=== PATIENT | male | born 1960 | race Caucasian/White ===

== ENCOUNTER 2017-03-15 01:22 | Observation (INO) ==
[2017-03-15] MEDS ORDERED: *HR* Morphine 2 MG/ML SYRINGE IVP PRN (03:07)
[2017-03-15] MEDS ORDERED: *HR* OxyCODONE Immed Rel 5 MG TABLET PO PRN (03:07)
[2017-03-15] MEDS ORDERED: *HR* Promethazine 25 MG/ML VIAL IVP PRN (03:07)
[2017-03-15] MEDS ORDERED: Naloxone 0.4 MG/ML INJ IVP PRN (03:07)
[2017-03-15] MEDS ORDERED: Acetaminophen 325 MG TABLET PO PRN (03:07)
[2017-03-15] MEDS ORDERED: Nitroglycerin 0.4 MG TAB.SUBL SL PRN (03:12)
[2017-03-15] MEDS ORDERED: Dextrose Gel 15 GM PO PRN ×2 (03:12)
[2017-03-15] MEDS ORDERED: Benzonatate 100 MG CAPSULE PO PRN (03:12)
[2017-03-15] MEDS ORDERED: D5% in Water 1,000 ML IVC PRN (03:12)
[2017-03-15] MEDS ORDERED: Albuterol 2.5 MG/3 ML NEBULIZER IH PRN (03:12)
[2017-03-15] MEDS ORDERED: *HR* Dextrose 50 % in Water (Syg) 50 ML SYRINGE IVP PRN (03:12)
[2017-03-15] MEDS ORDERED: 0.9 % Sodium Chloride 1,000 ML IVC SCH (03:15)
[2017-03-15] MEDS ORDERED: methylPREDNISolone 125 MG/2 ML VIAL IVP STA (04:02)
--- NOTE | 2017-03-15 04:09 | Internal Med History&Physical ---
Date of Encounter: 03/15/17 Time of Encounter: 03:45 Assessment and Plan (1) Chest pain, rule out acute myocardial infarction Current visit: Yes Status: Acute . (2) Chest pain with moderate risk of acute coronary syndrome Current visit: Yes Status: Acute . (3) CAD (coronary artery disease), [place] coronary artery Current visit: Yes Status: Chronic . Qualifiers: [place] vs. transplanted heart: [place] heart Associated angina: with stable angina Qualified Code(s): I25.118 - Atherosclerotic heart disease of [place] coronary artery with other forms of angina pectoris (4) HTN (hypertension) Current visit: Yes Status: Chronic . Qualifiers: Hypertension type: essential hypertension Qualified Code(s): I10 - Essential (primary) hypertension (5) HLD (hyperlipidemia) Current visit: Yes Status: Chronic . Qualifiers: Hyperlipidemia type: mixed hyperlipidemia Qualified Code(s): E78.2 - Mixed hyperlipidemia (6) Morbid obesity with BMI of 50.0-59.9, adult Current visit: Yes Status: Chronic . (7) Morbid (severe) obesity with alveolar hypoventilation Current visit: Yes Status: Chronic . (8) JONAH and COPD overlap syndrome Current visit: Yes Status: Chronic . (9) Type 2 diabetes mellitus Current visit: Yes Status: Chronic . Qualifiers: Diabetes mellitus complication status: with unspecified complications Diabetes mellitus senior living insulin use: without senior living use Qualified Code( s): E11.8 - Type 2 diabetes mellitus with unspecified complications (10) Heavy cigarette smoker (20-39 per day) Current visit: Yes Status: Chronic . (11) Acute exacerbation of COPD with asthma Current visit: Yes Status: Acute . (12) Nicotine dependence with nicotine-induced disorder Current visit: Yes Status: Chronic . Qualifiers: Nicotine product type: cigarettes Qualified Code(s): F17.219 - Nicotine dependence, cigarettes, with unspecified nicotine-induced disorders Internal Medicine - H&P: HPI Chief complaint: Acute chest and back pain; difficulty breathing. Admitted From: Hospital to Hospital Transfer ([facility], ED, [facility] transfer to [facility] inpatient) Plans for Post Hospital Care: Home History of present illness: Mr. Graham is a 56 year old male with history significant of CAD/PTCA stents x7/ AMIs x5, diastolicCHF/LVEF, type II DM, HTN, HLD, TIAs, depression/anxiety, RLS , GERD, chr MSK/LBpain, h/o necrotizing fascitis/strep pyogenes, morbid obesity , nicotine dependency. The patient received as a transfer from [facility] emergency department as a direct admit to [facility] inpatient unit to address acute coronary syndrome/unstable angina concerns the patient previously managed by [facility].Acute onset of retrosternal chest pain associated with mid to lower back pain and difficulty breathing with increasing work of breathing occurring at approximately 10 PM the evening of admission. Associated with generalized shaking and lightheadedness. Acknowledge stay history of CAD with previous stent placements. His chest pain as a 5-8/10 severity. Pressure-like heaviness radiating through to his back and left elbow. Denied any modifying factors. The patient felt that chest pain was similar to the last occasion he presented with chest pain to [facility] and required stenting. Blood sugar initially measured by patient to be over 400. He admitted to drinking regular Coca-Cola all evening. Not adhering to standard cardiac/ diabetic diet. Continues to smoke. Currently he had a half a pack to a pack per day for the last 3 months. Patient reports began smoking in kindergarten and has smoked as much as 5 packs per day. On average roughly 1-2 packs per day most of his adult life. Has known COPD and JONAH. Reports compliance with his CPAP nocturnally. Has not required use of his CPAP or oxygen during the day with his current symptoms. He reports compliance with his cardiovascular medications. Denies any indiscretions. Vital signs at time of initial transport: Temperature 97.7 blood pressure 185/94 respirations 24 pulse 105 O2 saturation by pulse oximetry 96% 3l/m NC. EKG demonstrated sinus rhythm with first-degree atrioventricular block. Poor R-wave progression. Low QRS voltage in precordial leads and limb leads no acute ischemic changes. Screening laboratory studies as reported by [facility] prior to transfer were benign including negative troponin/injury profiles. Examination upon arrival to [facility] is most noteworthy for labored respiration and evidence of acute exacerbation of chronic obstructive pulmonary disease with diffuse bronchospasm. Low back pain is more associated with chronic features of musculoskeletal discomfort. Chest pain may be a feature of his labored respirations and COPD untreated for some time. However he possesses increased risk due to hypoxia and respiratory demand for demand ischemia and his consequences. The patient presents increased risk for acute clinical decline and morbidity. Given his significant history and active active risk factors he is at increased risk for major acute coronary event. Workup and treatment will proceed comprehensively. The patient was visited and interviewed and examined. Cumulative laboratory and radiographic data base was reviewed and considered. Consultative opinions will be sought as clinical circumstances justify. Initial consultative opinion has been requested of cardiology. Acute coronary syndrome treatment protocols/surveillance guidelines initiated. Acute exacerbation of COPD treatment protocols/surveillance guidelines initiated. Plan of care has been discussed in detail with patient. Questions addressed. Hospital course will be dependent upon clinical findings, treatment response and potential consultative interventions. Given the patient's presenting concerns, past medical history, clinical findings and symptoms, he is admitted at this time to undergo further evaluation and disposition. Orders written as per the computerized physician mitochondrial disorders counselor system. Condition is serious. Prognosis is guarded. CODE STATUS is full. Past Med Surg Social Fam HX - Past Medical History Source: old records reviewed Medical history: arthritis, asthma, CHF, COPD, coronary artery disease, diabetes , GERD, hyperlipidemia, hypertension, myocardial infarction, renal disease, TIA , other Psychiatric history: anxiety, depression, other - Past Surgical History Surgical History: angioplasty/stent, cholecystectomy, other - Social History Smoking Status: Heavy tobacco smoker (Smoked for 50 years. 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 On average one to 2 packs per day outside of that. Reports that he is decreased in the last 2-3 months to half a pack a day. Reports that in the last 2-3 months he is decreased to half a pack per day.) Smokeless Tobacco Status: No Alcohol use: none, unknown Drug use: none, unknown Occupational status: unemployed Current living situation: Home, With Family Activity Level: Independent ambulation, Mostly sedentary Recent Out of Country Travel Within the Last 8 Weeks: No Exposure or Possible Exposure to Illness During Travel: No Internal Medicine - H&P: Meds Aspirin [Ecotrin] 325 mg PO DAILY 03/15/17 [History] Citalopram [CeleXA] 20 mg PO DAILY 03/15/17 [History] Clopidogrel [Plavix] 75 mg PO DAILY 03/15/17 [History] Esomeprazole Magnesium [Nexium 24Hr] 20 mg PO DAILY 03/15/17 [History] Fenofibrate Nanocrystallized [Tricor] 145 mg PO DAILY 03/15/17 [History] Furosemide [Lasix] 80 mg PO DAILY 03/15/17 [History] HYDROcodone/Acet 10/325 mg [[place] 10-325 mg] 1 tab PO Q6HR 03/15/17 [History] Insulin ASPART [NovoLOG] 60 unit SQ TIDWM 03/15/17 [History] Insulin Glargine [Lantus] 100 unit SQ BID 03/15/17 [History] Lisinopril [Zestril] 30 mg PO DAILY 03/15/17 [History] Metformin HCl [Glucophage] 1,000 mg PO BID 03/15/17 [History] Multivit-Min/FA/Lycopen/Lutein [Centrum Silver Tablet] 1 each PO DAILY 03/15/17 [History] Nitroglycerin [Nitrostat] 0.4 mg SL 1-3XD PRN 03/15/17 [History] [place]-3 Fatty Acids [Fish Oil] 1,000 mg PO DAILY 03/15/17 [History] Pramipexole [Mirapex] 1 mg PO DAILY 03/15/17 [History] Pregabalin [Lyrica] 03/15/17 [History] Allergies No Known Allergies Allergy (Verified 06/30/16 09:52) All Systems PM: A 10-system review of systems was performed and is negative for pertinent findings except as documented above in the HPI. - Constitutional Constitutional: as per HPI, chills, fatigue, malaise, other, no fever(s), no night sweats - EENT Eyes: as per HPI, no change in vision, no discharge, no pain, no photophobia Ears: as per HPI, no ear discharge, no ear pain, no tinnitus Nose, mouth and throat: as per HPI, no dysphagia, no nasal discharge, no neck pain, no sore throat - Cardiovascular Cardiovascular ROS IM: as per HPI, chest pain, dyspnea, dyspnea on exertion, lightheadedness, palpitations, other, no diaphoresis, no edema, no syncope - Respiratory Respiratory: as per HPI, cough, dyspnea, dyspnea on exertion, wheezing, chest congestion, pain with cough, other, no stridor, no excessive phlegm production - Gastrointestinal Gastrointestinal: as per HPI, no abdominal pain, no diarrhea, no hematemesis, no hematochezia, no melena, no nausea, no vomiting - Genitourinary Genitourinary ROS male: as per HPI - Musculoskeletal Musculoskeletal ROS IM: as per HPI, no numbness, no tingling - Integumentary Integumentary IM: as per HPI, no rash, no unusual bruising - Neurological Neurological ROS: as per HPI, no confusion, no convulsions, no focal weakness, no numbness, no tingling, no tremor(s) - Psychiatric Psychiatric: as per HPI - Endocrine Endocrine IM: as per HPI - Hematologic/Lymphatic Hematologic/Lymphatic: as per HPI, no easy bruising - Allergic/Immunologic Allergic/Immunologic: as per HPI - Constitutional General appearance: Present: cooperative, mild distress, A&O X 3, morbidly obese , answers questions appropriately - Head Head exam: Present: atraumatic, normal inspection, normocephalic - Eye Eye exam: Present: EOMI, PERRL, conjuntiva pink, sclera anicteric Pupils: Present: normal accommodation, PERRL - ENT ENT exam: Present: mucous membranes moist, normal external ear exam, normal oropharynx - Neck Neck exam general surgery: Present: full ROM, supple, trachea midline. Absent: lymphadenopathy, nuchal rigidity - Respiratory Respiratory exam: Present: decreased breath sounds, prolonged expiratory phase, respiratory distress, rhonchi, wheezes, tachypnea. Absent: accessory muscle use , chest wall tenderness, CTAB, rales, stridor - Cardiovascular Cardiovascular exam: Present: distant heart sounds, RRR, +S1, +S2, tachycardia. Absent: diastolic murmur, gallop, rubs, systolic murmur - GI/Abdominal GI/Abdominal exam: Present: diminished bowel sounds, distended, soft, no peritoneal signs. Absent: tenderness - Extremities Exam Extremities exam: Present: full ROM, warm, radial pulses palpable and symetrical. Absent: calf tenderness, cyanotic, joint swelling, pedal edema, tenderness - Neurological Exam Neurological exam: Present: alert, CN II-XII intact, oriented X3, no focal deficits. Absent: pronater drift, facial droop, speech deficit - Psychiatric Psychiatric exam: Present: normal affect, normal mood - Skin Skin exam: Present: dry, intact, warm. Absent: petechiae, rash, urticaria, vesicles
[2017-03-15] MEDS: Ipratropium/Albuterol Neb 3 ML IH SCH ×3 (04:25→16:33)
[2017-03-15 04:42] LABS: ABG Base Excess 4.7 mEq/L (-2.0 to 3.0); ABG Oxygen Saturation 92 % (95-98); ABG PCO2 50 mmHg (35-45); ABG PO2 64 mmHg (85-104); ABG TCO2 32.5 mEq/L (20-26)
[2017-03-15 04:43] LABS: Blood Gas FiO2 21 %
[2017-03-15 05:20] LABS: Basophils # 0.1 K/mcL (0.0-0.2); Basophils % 0.5 %; Eosinophils # 0.3 K/mcL (0.0-0.6); Eosinophils % 2.2 %; Hematocrit 41.1 % (37.5-50.1); Hemoglobin 13.3 g/dL (12.9-16.9); Immature Granulocytes % 0.9 % (0-4); Lymphocytes # 4.5 K/mcL (0.6-4.6); Lymphocytes % 29.5 %; Mean Corpuscular HGB Conc 32.4 g/dL (31.6-35.5); Mean Corpuscular Volume 92.8 fL (83.0-100.0); Mean Platelet Volume 12.5 fL (9.4-12.4); Monocytes # 1.3 K/mcL (0.0-1.3); Monocytes % 8.4 %; Neutrophils # 8.9 K/mcL (1.6-8.9); Platelet Count 185 K/mcL (140-400); Red Blood Count 4.43 M/mcL (4.19-5.50); Red Cell Distribution Width 15.5 % (11.5-14.5); Segmented Neutrophils % 58.5 %
[2017-03-15 05:23] LABS: Prothrombin Time 11.3 Seconds (9.4-12.1)
[2017-03-15 05:26] LABS: Activated Partial Thrombo Time 31.4 Seconds (26.0-36.0)
[2017-03-15 05:31] LABS: Hemoglobin A1C 9.4 %
[2017-03-15 05:35] LABS: BUN/Creatinine Ratio 19 (6-26); Blood Urea Nitrogen 21 mg/dL (8-26); Carbon Dioxide 21 mEq/L (19-29); Chloride 104 mEq/L (98-109); Sodium 137 mEq/L (136-145); eGFR For African Americans > 60 (> 60)
[2017-03-15 05:36] LABS: Alanine Aminotransferase 22 Units/L (0-55); Albumin 3.2 g/dL (3.5-5.0); Albumin/Globulin Ratio 0.8 (1.1-2.2); Alkaline Phosphatase 104 Units/L (38-126); Aspartate Amino Transferase 35 Units/L (5-34); Bilirubin,Total 0.4 mg/dL (0.2-1.2); Calcium 9.9 mg/dL (8.6-10.8); Chol/HDL Ratio 5.8 (0-4.9); Cholesterol 162 mg/dL (< 200); Globulin 4.2 g/dL (2.4-3.5); Glucose 171 mg/dL (70-99); HDL Cholesterol 28 mg/dL (40-59); LDL Cholesterol,Calculated 85 mg/dL (0-99); Osmolality,Calculated 291 (280-300); Phosphorous 3.7 mg/dL (2.3-4.7); Total Protein 7.4 g/dL (6.0-8.3); Triglycerides 246 mg/dL (< 150); eGFR For Non-African Americans > 60 (> 60)
[2017-03-15 05:39] LABS: Potassium 4.3 mEq/L (3.5-4.5)
[2017-03-15] MEDS ORDERED: *HR* Enoxaparin 30 MG/0.3 ML SYRINGE SQ SCH (06:00)
[2017-03-15 06:08] LABS: Thyroid Stimulating Hormone 0.301 mcIU/mL (0.350-4.840)
[2017-03-15 07:41] LABS: Bilirubin,Urine Small (Negative); Blood,Urine Negative (Negative); Clarity,Urine Clear (Clear); Color,Urine Dark Yellow (Yellow); Glucose,Urine (UA) 250 mg/dL (Normal); Ketones,Urine Negative (Negative); Leukocyte Esterase,Urine Negative (Negative); Nitrite,Urine Negative (Negative); PH,Urine 5.5 pH Units (5.0-8.0); Protein,Urine 30 mg/dL (Neg-Trace); Specific Gravity,Urine > 1.030 (1.010-1.025); Urobilinogen,Urine Normal (Normal)
[2017-03-15 07:45] LABS: Bacteria,Urine None Seen per hpf (None-Few); Hyaline Casts,Urine None Seen per lpf (None-Few); Squamous Epithelial Cell,Urine Many per lpf (None-Few); WBC,Urine 0-3 per hpf (0-3)
[2017-03-15] MEDS: Insulin LISPRO 300 UNITS/3 ML VIAL SQ SCH ×4 (07:49→12:03)
--- NOTE | 2017-03-15 08:47 | Cardiology Consult Note ---
Date of Encounter: 03/15/17 Time of Encounter: 08:36 Assessment and Plan (1) Chest pain with high risk for cardiac etiology Current Visit: Yes Status: Acute Patient with high risks for cardiac chest pain including hypertension, hyperlipidemia, type II diabetes, tobacco use, and family history of cardiac disease unspecified and history of CAD s/p 7 stents and 5 acute AR, who was transferred from [facility] for [facility] evaluation of sudden substernal chest pain at rest with radiation to mid-low back and left elbow and shortness of breath with resolution shortly after sublingual nitroglycerin. [place] EKG revealed normal sinus rhythm with first degree heart block (pr 204ms) . Troponin was <0.056 and BNP 87.3. Repeat EKG upon arrival to [facility] revealed normal sinus rhythm with first degree heart block (pr 202ms) and no st elevations depressions or t wave inversions. Troponin was 0.02, BNP 15. Last echo completed 06/05/2012 revealed LV normal size, Concentric LVH, LVEF 50% . Distal anterior, anteroseptal, and apical hypokinesis. Normal RV. No valvular dysfunction. CT chest revealed mild bibasilar atelectasis, atherosclerosis including coronary artery calcification, and several scattered noncalcified pulmonary nodules. Calcification of thoracic aorta, Coronary artery calcification. Echo results pending. Continue telemetry monitoring. Start Imdur 60mg qd, Start metoprolol 25mg bid May consider Abdominal Ultrasound as outpatient to rule out AAA. Follow up with Cardiology as outpatient within 2 weeks. Cardio will sign off at this time, please contact us with any additional concerns. (2) CAD (coronary artery disease), [place] coronary artery Current Visit: Yes Status: Chronic Patient with a history of CAD s/p 7 stents and history of 5 acute MIs. Continue home medication for chronic disease management. Continue per plan in assessment above. Qualifiers: [place] vs. transplanted heart: [place] heart Associated angina: with stable angina Qualified Code(s): I25.118 - Atherosclerotic heart disease of [place] coronary artery with other forms of angina pectoris (3) COPD (chronic obstructive pulmonary disease) Current Visit: Yes Status: Chronic No acute exacerbation Continue home medications for chronic disease management. Qualifiers: COPD type: unspecified COPD Qualified Code(s): J44.9 - Chronic obstructive pulmonary disease, unspecified (4) Midline low back pain Current Visit: Yes Status: Chronic Chronic mid-low back pain. Continue home medications for chronic disease management. Qualifiers: Chronicity: chronic Sciatica presence: without sciatica Qualified Code(s) : M54.5 - Low back pain; G89.29 - Other chronic pain (5) HTN (hypertension) Current Visit: Yes Status: Chronic History of chronic hypertension on medications. Bp elevated at 195/85, pulse 84. Though intial bp 128/74, pulse 59. Continue home medications for chronic disease management. Qualifiers: Hypertension type: essential hypertension Qualified Code(s): I10 - Essential (primary) hypertension (6) HLD (hyperlipidemia) Current Visit: Yes Status: Chronic Patient with a history of hyperlipidemia. Labs revealed Triglycerides 246, Cholesterold 162, LDL 85, VLDL 49, and HDL 28. Continue home medications for chronic disease management. Qualifiers: Hyperlipidemia type: mixed hyperlipidemia Qualified Code(s): E78.2 - Mixed hyperlipidemia (7) GERD (gastroesophageal reflux disease) Current Visit: Yes Status: Acute History of GERD Continue home medications for chronic disease management. Qualifiers: Esophagitis presence: esophagitis presence not specified Qualified Code(s) : K21.9 - Gastro-esophageal reflux disease without esophagitis (8) Type 2 diabetes mellitus Current Visit: Yes Status: Chronic History of diabetes, uncontrolled. Initial fingerstick by EMS was 401, [place] blood glucose at 352. Blood sugar this morning 171. Continue home medications for chronic disease management. 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 Reported using for >50 years, at times about 5 ppd, most recently 1/2 ppd, quit a couple days ago. (11) Morbid obesity with BMI of 45.0-49.9, adult Current Visit: Yes Status: Chronic Discussion w patient/family: The assessment and plan as outlined above was discussed with the patient and/or family members who expressed understanding and agreement. All questions were answered. Thank you for involving us in the care of your patient. Please call with any questions. History of Present Illness Consult date: 03/15/17 Requesting physician: Emre Roque Consult reason: Acute prolonged chest pain with significant Cardiac history Chief complaint: Chest pain History of present illness: Mr. Graham is a 56 year old male with history of CAD with stents x7, history of acute AR x5, diastolic CHF with last echo in 2011, COPD, JONAH, diabetes, hypertension, hyperlipidemia, hx of TIAs, GERD, Chronic back pain, morbid obesity, and tobacco use disorder severe (>50 pack year history, most recently 1 /2 ppd, quit 3 days ago) who was transferred from [facility] for direct admit to [facility] with complaint of sudden substernal chest pain and shortness of breath at around 22:00pm yesterday evening at rest described as pressure like with radiation to mid/low back and left elbow. Patient also had complaints of shaking. Pain was similar to pain in the past requiring stent placement. Patient reports chest pain resolved shortly after being given nitroglycerin at [facility]. Denies additional episodes of chest pain or shortness of breath since arrival. Patient denies fevers, chills, sweats, changes in vision or hearing, headaches, nausea, vomiting, palpitations, cough, increased phlegm, abdominal pain, changes in bowels or bladder, weakness, or loss of sensation. Patient reports he takes plavix daily, no additional anticoagulants. Patient was transferred for Cardiology evaluation as patient reports prior [facility] visits with Dr. Noe, though unable to find any in EMR except for [address] Cosme. Review of records sent with patient: [facility] initial vitals was Pulse 92, Respiration 20, bp 185/94, and 98% on 3L nasal cannula. EKG revealed normal sinus rhythm with first degree heart block (pr 204ms). Troponin was <0.056 and BNP 87.3, PT 12.5, INR 1.02, PTT 27.9. [place] initial vitals was Temp 98.7, Pulse 59, Respiration 16, bp 128/74, and 94% on room air. Repeat ekg revealed normal sinus rhythm with first degree heart block (pr 202ms) and no st elevations depressions or t wave inversions. Troponin was 0.02 and BNP 15, PT 11.3, INR 1.0, PTT 31.4. No CXR indicated in [facility] documentation or present in [facility] from this visit. Our records indicate last echo complete 06/05/2012. LV normal size, Concentric LVH, LVEF 50 %. Distal anterior, anteroseptal, and apical hypokinesis. Normal RV. No valvular dysfunction. Reports no prior history of abdominal ultrasound to rule out AAA. Past Med Surg Social Fam HX - Past Medical History Medical history: arthritis, asthma, CHF, COPD, coronary artery disease, diabetes , GERD, hyperlipidemia, hypertension, myocardial infarction, renal disease, TIA , other (JONAH) Psychiatric history: anxiety, depression, other - Past Surgical History Surgical History: angioplasty/stent, cholecystectomy, other - Social History Smoking Status: Heavy tobacco smoker (Smoked for 50 years. 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 On average one to 2 packs per day outside of that. Reports that he is decreased in the last 2-3 months to half a pack a day. Reports that in the last 2-3 months he is decreased to half a pack per day.) Smokeless Tobacco Status: No Alcohol use: none, unknown Drug use: none, unknown Occupational status: retired Current living situation: Home - Independent Activity Level: Independent ambulation Recent Out of Country Travel Within the Last 8 Weeks: No Exposure or Possible Exposure to Illness During Travel: No - Family History Mother Hx Family Cardiac Disorders: Yes (unspecified) Hx Family Endocrine Disorder: Yes (DIABETES MELLITUS.) Medications and Allergies Albuterol Neb [Proventil Neb] 2.5 mg IH Q4HR PRN 03/15/17 [History] Albuterol Sulfate [Albuterol Inhaler] 2 puff IH Q4HR PRN 03/15/17 [History] Aspirin [Ecotrin] 325 mg PO DAILY 03/15/17 [History] Citalopram [CeleXA] 20 mg PO DAILY 03/15/17 [History] Clopidogrel [Plavix] 75 mg PO DAILY 03/15/17 [History] Ergocalciferol (VITAMIN D2) [Vitamin D2] 50,000 unit PO QWEEK MDD 03/15 [History] Esomeprazole Magnesium [Nexium 24Hr] 20 mg PO DAILY 03/15/17 [History] Fenofibrate Nanocrystallized [Tricor] 145 mg PO DAILY 03/15/17 [History] Furosemide [Lasix] 80 mg PO DAILY 03/15/17 [History] HYDROcodone/Acet 10/325 mg [[place] 10-325 mg] 1 tab PO Q6HR 03/15/17 [History] Insulin ASPART [NovoLOG] 60 unit SQ TIDWM 03/15/17 [History] Insulin Glargine [Lantus] 100 unit SQ BID 03/15/17 [History] Lisinopril [Zestril] 30 mg PO DAILY 03/15/17 [History] Metformin HCl [Glucophage] 1,000 mg PO BID 03/15/17 [History] Multivit-Min/FA/Lycopen/Lutein [Centrum Silver Tablet] 1 tab PO DAILY 03/15/17 [ History] Nitroglycerin [Nitrostat] 0.4 mg SL 1-3XD PRN 03/15/17 [History] [place]-3 Fatty Acids [Fish Oil] 1,000 mg PO DAILY 03/15/17 [History] Pramipexole [Mirapex] 1 mg PO DAILY 03/15/17 [History] Pregabalin [Lyrica] 200 mg PO BID 03/15/17 [History] Allergies No Known Allergies Allergy (Verified 06/30/16 09:52) All Systems Review: A 10-system review of systems was performed and is negative for pertinent findings except as documented above in the HPI. - Constitutional Constitutional: no chills, no fever(s), no headache(s), no night sweats, no weakness - EENT Eyes: no blurred vision, no loss of vision Nose, mouth and throat: no dysphagia, no sore throat - Cardiovascular Cardiovascular: as per HPI, chest pain at rest, dyspnea at rest, dyspnea on exertion, no diaphoresis, no leg edema, no lightheadedness, no palpitations - Respiratory Respiratory: dyspnea, no cough, no hemoptysis - Gastrointestinal Gastrointestinal: no abdominal pain, no constipation, no diarrhea, no dysphagia , no nausea - Genitourinary Genitourinary: no dysuria - Musculoskeletal Musculoskeletal: back pain, no abnormal gait, no muscle weakness - Integumentary Integumentary: no rash - Neurological Neurological: no dizziness, no loss of vision, no numbness, no syncope, no tingling - Hematological/Lymphatic Hematologic/Lymphatic: no easy bleeding, no easy bruising Physical Examination Vital Signs, Last 4 Hours Temp Pulse Resp BP Pulse Ox 03/15/17 07:22 98.3 F 84 17 195/85 92 03/15/17 04:39 98.7 F 59 16 128/74 94 General: Conversant, No Apparent Distress HEENT: Atraumatic, Normocephaly, Mucus Membranes Moist Neck: No JVD, Normal carotid pulses Cardiac: Reg Rate and Rhythm, Normal S1 and S2, No Murmur, Other (diminished sounds secondary to body habitus) Lungs: Other (decreased sounds bilaterally, mild expiratory wheezing) Neuro: Alert and responsive, No focal deficits noted Abdomen: Soft, Non-Tender, Other (no murmur noted, no abnormal pulsation felt) Skin: No rashes noted on visualized skin Musculoskeletal: No Chest Wall Tenderness Extremities: No Clubbing, No Cyanosis, No Edema, Normal Pulses Results 03/15/17 04:52 03/15/17 04:52 Lab Results 03/15/17 03/15/17 03/15/17 04:52 04:52 04:52 WBC 15.2 H Hgb 13.3 Hct 41.1 Plt Count 185 INR 1.0 APTT 31.4 Sodium 137 Potassium 4.3 Chloride 104 Carbon Dioxide 21 BUN 21 Creatinine 1.10 Glucose 171 H Calcium 9.9 Magnesium 2.0 Total Bilirubin 0.4 AST 35 H ALT 22 Alkaline Phosphatase 104 Troponin I B-Natriuretic Peptide TSH 0.301 L 03/15/17 03/15/17 04:52 04:52 WBC Hgb Hct Plt Count INR APTT Sodium Potassium Chloride Carbon Dioxide BUN Creatinine Glucose Calcium Magnesium Total Bilirubin AST ALT Alkaline Phosphatase Troponin I 0.02 B-Natriuretic Peptide 15 TSH Consult Discharge Plan - Plan Referrals: Elma Giordano [Primary Care Provider] -
[2017-03-15] MEDS ORDERED: Perflutren Lipid Microsphere 1.3 ML in 0.9 % Sodium Chloride 8.7 ML IVP ONE (08:57)
[2017-03-15] MEDS ORDERED: Nicotine 21 MG PATCH.TD24 TD SCH (09:00)
[2017-03-15] MEDS ORDERED: Fenofibrate 54 MG TABLET PO SCH (09:00)
[2017-03-15] MEDS ORDERED: (Omega-3 Fatty Acids [Fish Oil] 1,000 MG) PO SCH (09:00)
[2017-03-15] MEDS ORDERED: Aspirin 81 MG TAB.CHEW PO SCH (09:00)
[2017-03-15] MEDS ORDERED: Pantoprazole 40 MG VIAL IVP SCH (09:00)
[2017-03-15] MEDS ORDERED: Aspirin Enteric Coated 325 MG Tablet PO SCH (09:00)
[2017-03-15] MEDS ORDERED: MethylPREDNISolone 40 MG/ML VIAL IM SCH (12:00)
[2017-03-15] MEDS ORDERED: *HR* HYDROcodone/Acet 10/325 mg TABLET PO PRN (12:15)
--- NOTE | 2017-03-15 14:45 | ECHO - Doppler Report ---
Echo with Imaging Enhancement Agent Name: Maximino Graham Date of Study: 03/15/2017 Date: 1960 Ht: 71.0 in Medical Record#: [id number] Age: 56 Wt: 356.0 lb Gender: Male BSA: 2.69 Order #: [id number] Location: [facility] Room #: 3B39 Reading Physician: Fatou Irene DO Substation Engineer: Nash Tena Ordering Physician: Emre Roque MD Primary Physician: None Indications: Acute coronary syndrome Impressions: LVEF 60%. Normal left ventricular size and systolic function. Definity was used. Mild increased LV wall thickness. There is evidence of mild diastolic dysfunction of the left ventricle. Mildly dilated RV with normal function. No significant valvular dysfunction. No pulmonary hypertension. Trivial pericardial effusion. No tamponade. Left Ventricular Wall Motion: Rest Echo Findings All wall segments showed normal motion. Findings: Study Quality * Technically sub-optimal due to body habitus. ECG Findings * Normal sinus rhythm. Aortic Valve * No aortic regurgitation. * Aortic valve not well visualized. * No aortic stenosis. Mitral Valve * Anterior leaflet is mildly calcified. Normal leaflet mobility. * No mitral stenosis. * Trace mitral regurgitation. Tricuspid Valve * Tricuspid valve not well visualized. * Trace tricuspid regurgitation. Pulmonic Valve * Pulmonic valve is not well visualized. * No pulmonic stenosis. * Trace pulmonic regurgitation. Pulmonary Artery * Pulmonary artery not well visualized. Left Atrium * Normal left atrial size. Right Atrium * Normal right atrial size. Left Ventricle * Mild left ventricular diastolic dysfunction. * LVEF 60%. * Mild increased LV wall thickness. * Definity echo contrast was used. Interatrial Septum * Interatrial septum not well evaluated. IVC * The IVC is not well evaluated. Aorta * Suboptimally visualized. Pericardium * There is a trivial pericardial effusion present. Right Ventricle * Mildly dilated, normal function. History Hypertension Diabetes Hypercholesteremia Years 48 Packs Family History of CAD History of CAD/PTCA Myocardial Infarction Coronary Artery Bypass Graft 06/05/2012 a Previous Echo was performed. Contrast: Definity 1.3 ml in 8.7 ml of saline 3 ml. Measurements: BP: 128/ 74 2D Normal Values IVSd: 1.00 cm 0.6 - 1.0 cm LVIDd: 6.20 cm 3.7 - 5.6 cm LVPWd: .90 cm 0.6 - 1.1 cm LVIDs: 4.30 cm 1.5 - 3.6 cm AO: 2.80 cm < 4.0 cm LA: 3.90 cm 2.0 - 4.0cm %FS: 30.60 cm >25 % LA volume: 67 Mitral Valve Peak E:.87 m/sec Peak A:1.00 m/sec E/A Ratio:0.9 Peak E' Lat Zafar:9.26 cm/s Peak E' Med Zafar:9.55 cm/s E/E' Lat Ratio:9.4 E/E' Med Ratio:9.1 Tricuspid Valve TV Regurg Peak Grad: 22.00mmHg TV Regurg Peak Zafar: 2.32m/sec Updated by Fatou Irene on 03/15/2017 2:36:31 PM electronically signed on 03/15/2017 2:39:18 PM with status of Final Wall Motion Hay: 1=Normal, 2=Hypokinesis, 3=Akinesis, 4=Dyskinesis, 5=Aneurysmal, 6=Hyperkinetic, X=Not Visualized (Blank)=Missing
[2017-03-15 15:11] VITALS: BP 170/86
--- NOTE | 2017-03-15 15:35 | Discharge Summary ---
Date of Encounter: 03/15/17 Time of Encounter: 12:00 - Discharge Diagnosis (1) Chest pain, rule out acute myocardial infarction Priority: Primary Status: Acute Comments: Pt was transferred from [facility] for cardiology evaluation due to chest pain at rest with radiation ot mid back and L elbow, shortness of breath that was resolved with SL ntg. EKG NSR with 1st degree block. Troponin negative x 3. Pt is pain free currently. Echo today showed LVEF 60%, normal LV size and systolic function. There is mild increased LV wall thickness. Mild diastolic dysfunction. Mildly dilate RV with normal function and no significant valvular dysfunction. No pulmonary hypertension, trivial pericardial effusion, no tamponade. Cardiology recommends: Imdur 60mg po daily Metoprolol 25mg po bid Follow up with cardiology in 2 weeks Recommend abd US for evaluation of AAA outpatient. (2) COPD (chronic obstructive pulmonary disease) Priority: Secondary Status: Chronic Comments: No acute exacerbation. No need for medications. Well controlled at home. Continue home medications Qualifiers: COPD type: unspecified COPD Qualified Code(s): J44.9 - Chronic obstructive pulmonary disease, unspecified (3) CAD (coronary artery disease), [place] coronary artery Priority: Secondary Status: Chronic Comments: Significant history of CAD patient reports UT 5 and cardiac stents 7. Continue home medications add Imdur 60 mg by mouth daily, metformin 25 mg by mouth twice a day Qualifiers: [place] vs. transplanted heart: [place] heart Associated angina: with stable angina Qualified Code(s): I25.118 - Atherosclerotic heart disease of [place] coronary artery with other forms of angina pectoris (4) HTN (hypertension) Priority: Secondary Status: Chronic Comments: Chronic. Continue home medications. Plan as above Qualifiers: Hypertension type: essential hypertension Qualified Code(s): I10 - Essential (primary) hypertension (5) HLD (hyperlipidemia) Priority: Secondary Status: Chronic Comments: Chronic. Continue home medications. Qualifiers: Hyperlipidemia type: mixed hyperlipidemia Qualified Code(s): E78.2 - Mixed hyperlipidemia (6) Morbid obesity with BMI of 50.0-59.9, adult Priority: Secondary Status: Chronic Comments: Chronic. Lifestyle changes. (7) Heavy cigarette smoker (20-39 per day) Priority: Secondary Status: Chronic Comments: Discussed smoking cessation with patient. Patient declines at this time. - Discharge Medications Prescriptions: Isosorbide MONOnitrate (24 HR) [Imdur] 60 mg PO DAILY #30 tab.er.24h Metoprolol [Lopressor] 25 mg PO BID #60 tablet PredniSONE 10 mg PO DAILY #31 tablet Home Medications: Albuterol Neb [Proventil Neb] 2.5 mg IH Q4HR PRN 03/15/17 [History] Albuterol Sulfate [Albuterol Inhaler] 2 puff IH Q4HR PRN 03/15/17 [History] Aspirin Enteric Coated [Aspirin EC] 325 mg PO DAILY tablet. 03/15/17 [Rx] Aspirin [Ecotrin] 325 mg PO DAILY 03/15/17 [History] Benzonatate [Tessalon] 200 mg PO TID PRN #0 capsule 03/15/17 [Rx] Citalopram [CeleXA] 20 mg PO DAILY 03/15/17 [History] Clopidogrel [Plavix] 75 mg PO DAILY 03/15/17 [History] Ergocalciferol (VITAMIN D2) [Vitamin D2] 50,000 unit PO QWEEK MDD 03/15 [History] Esomeprazole Magnesium [Nexium 24Hr] 20 mg PO DAILY 03/15/17 [History] Fenofibrate Nanocrystallized [Tricor] 145 mg PO DAILY 03/15/17 [History] Furosemide [Lasix] 80 mg PO DAILY 03/15/17 [History] GuaiFENesin ER [Mucinex] 1,200 mg PO BID tbbp.12hr 03/15/17 [Rx] HYDROcodone/Acet 10/325 mg [[place] 10-325 mg] 1 tab PO Q6HR 03/15/17 [History] Insulin ASPART [NovoLOG] 60 unit SQ TIDWM 03/15/17 [History] Insulin Glargine [Lantus] 100 unit SQ BID 03/15/17 [History] Isosorbide MONOnitrate (24 HR) [Imdur] 60 mg PO DAILY #30 tab.er.24h 03/15/17 [ Rx] Lisinopril [Zestril] 30 mg PO DAILY 03/15/17 [History] Metformin HCl [Glucophage] 1,000 mg PO BID 03/15/17 [History] Metoprolol [Lopressor] 25 mg PO BID #60 tablet 03/15/17 [Rx] Multivit-Min/FA/Lycopen/Lutein [Centrum Silver Tablet] 1 tab PO DAILY 03/15/17 [ History] Nitroglycerin [Nitrostat] 0.4 mg SL 1-3XD PRN 03/15/17 [History] [place]-3 Fatty Acids [Fish Oil] 1,000 mg PO DAILY 03/15/17 [History] Pramipexole [Mirapex] 1 mg PO DAILY 03/15/17 [History] PredniSONE 10 mg PO DAILY #31 tablet 03/15/17 [Rx] Pregabalin [Lyrica] 200 mg PO BID 03/15/17 [History] Allergies/Adverse Reactions: Allergies No Known Allergies Allergy (Verified 06/30/16 09:52) Procedures/tests Complete & Pending: Procedures Performed prior 72 hours Category Date Time Status CT chest w/o contrast [CT chest wo con] [CT] Routine Cat Scan 03/15/17 09:00 Completed ECG 12 lead ECG [ECG] Routine Y 03/15/17 03:12 Completed ECG 12 lead ECG [ECG] Routine Y 03/16/17 07:00 Ordered ECG 12 lead ECG [ECG] Stat Y 03/15/17 03:07 Stop Req ECG 12 lead ECG [ECG] Stat Y 03/15/17 03:12 Completed EV echocardiogram w enhance Routine Y 03/15/17 03:12 Completed Date of admission: 03/15/17 03:01 Primary care physician: Elma Giordano Consults: 03/15/17 03:12 Consult to Physician Office Specialist [CONS] Routine Comment: Consult to Nurse Navigator [CONS] Routine Comment: Consult to Nurse Navigator [CONS] Routine Comment: 03/15/17 09:00 Consult to Cardiology [CONS] Routine Comment: Consulting Provider: Cardiology Adkins Reason for Consult: Acute prolonged chest pain r/o ACS/UA in patient with CAD/PTCAstents x6/AMIs, HTN, HLD, AODM, COPD/JONAH, smoker 1-2ppd. Please evaluate and advise. Time Notified: 03:18 Call Completed: No Discharging clinician: Niru Yarbrough Anticipated date of discharge: 03/15/17 - Patient Status Disposition: Home, Self-Care Condition: Good Functional capacity at discharge: independent ambulation Overall status at discharge: patient is back to baseline - Ambulatory Orders Ambulatory Orders: CT abdomen wo no iv no oral [CT] Time Frame: 5 Days, Facility: [facility], Location: Endoscopy - Discharge Instructions Instructions: Metoprolol (By mouth), Prednisone (By mouth), Isosorbide Mononitrate (By mouth), Chest Pain (DC) Follow Up With: Elma Giordano [Primary Care Provider] - 03/24/17 10:00 am Roxi Lopez CNP [Partnered Physician] - 04/07/17 9:30 am Additional Instructions: Start your new medications tomorrow Continue your other home medications Get your CT scan in the next week Follow up with your PCP in the next week Follow up with cardiology in the next 2 weeks. - Diet and Activity Activity: increase activity as tolerated Diet: advance to your usual diet Hospital course: Mr. Graham is a 56 year old male past medical history of coronary disease cardiac stents 7 UT 5 diastolic chest failure diabetes hypertension hyperlipidemia strokes GERD smoking history and morbid obesity. Patient had substernal chest pain, mid to lower back pain difficulty breathing while resting at 10 PM last night. He said he was lightheaded and had some shaking. He rated his chest pain a 5 out of 10. His no longer having chest pain the pressure/pain radiated through to his back to his left elbow. patient is hyperglycemic and was at home last night drinking Coke all night. Patient is currently a smoker and says he is not interested in cessation at this time. He uses a CPAP at home while resting. He has been asleep in the bed since he got back from his echocardiogram sleeping with the CPAP on today. Patient has CT chest without contrast. It shows calcification of the thoracic aorta, calcified mediastinal and right hilar lymph nodes, calcified pulmonary nodules. His liver is fatty and there are calcified granulomas within the liver and spleen. There is probable left adrenal adenoma measuring 1.[address] chest without contrast shows mild bibasilar atelectasis atherosclerosis including coronary artery calcification, several scattered noncalcified pulmonary nodules. Fleischner Society guidelines show that with multiple solid nodules that are less than 6 mm is at low risk patient and her routine follow- up as needed. Patient had an echocardiogram done today LVEF is 60%, normal systolic function, Definity was used. There is evidence of mild diastolic dysfunction of left ventricle. There is no significant valvular dysfunction no pulmonary hypertension, trivial pericardial effusion and no tamponade . Cardiology has signed off on patient. They recommend starting Imdur 60 mg by mouth daily, metoprolol 25 mg by mouth twice a day, follow-up with cardiology in 2 weeks. An abdominal ultrasound to evaluate the abdominal aorta. I have given him prescriptions for all of those recommended the follow-up in 2 weeks and write the order for the ultrasound outpatient. Patient says he feels fine is pain-free and is ready to go home. Patient is stable for discharge. - Time Spent with Patient Total time spent providing and/or coordinating discharge services: Less than 30 minutes - Constitutional Vitals: Temp Pulse Resp BP Pulse Ox 98.1 F 88 17 170/86 93 03/15/17 15:11 03/15/17 15:11 03/15/17 15:11 03/15/17 15:11 03/15/17 15:11 General appearance: Present: cooperative, mild distress, A&O X 3, morbidly obese , answers questions appropriately - Eye Eye exam: Present: normal appearance, conjuntiva pink - ENT ENT exam: Present: mucous membranes moist, normal exam - Respiratory Respiratory exam: Present: decreased breath sounds. Absent: chest wall tenderness, rales, respiratory distress, stridor, wheezes, tachypnea - Cardiovascular Cardiovascular exam: Present: RRR, +S1, +S2. Absent: diastolic murmur, systolic murmur - GI/Abdominal GI/Abdominal exam: Present: distended, normal bowel sounds, soft. Absent: tenderness - Extremities Exam Extremities exam: Present: normal capillary refill, warm, radial pulses palpable and symetrical. Absent: pedal edema, tenderness - Neurological Exam Neurological exam: Present: alert, oriented X3, no focal deficits. Absent: facial droop, speech deficit
[2017-03-15] MEDS ORDERED: Insulin LISPRO 300 UNITS/3 ML VIAL SQ SCH (21:00)
[2017-03-15] MEDS ORDERED: Insulin DETEMIR 100 UNIT/ML X5UNITS SQ SCH (21:00)
--- NOTE | 2017-03-16 06:37 | Electrocardiograph Report ---
[place] [address] Test Date: 2017-03-15 Pat Name: Maximino Graham Department: 113 Room: 3B Gender: M Rhia: [id number] : 1960 Requested By: Emre Roque Order Number: [id number] Reading MD: Krunal Issa MD Measurements Intervals [place] Rate: 86 P: 148 MA: 200 QRS: 158 QRSD: 103 T: 150 QT: 358 QTc: 402 Interpretive Statements SINUS RHYTHM ARM LEADS REVERSED Electronically Signed On 03-16-2017 6:36:05 EDT by Krunal Issa MD
--- NOTE | 2017-03-16 06:37 | Electrocardiograph Report ---
[address] [address] Test Date: 2017-03-15 Pat Name: Maximino Graham Department: 113 Room: 3B Gender: M House Admin: [id number] : 1960 Requested By: Emre Roque Order Number: [id number] Reading MD: Krunal Issa MD Measurements Intervals [place] Rate: 84 P: 33 [place]: 202 QRS: 19 QRSD: 89 T: 29 QT: 360 QTc: 402 Interpretive Statements SINUS RHYTHM Electronically Signed On 03-16-2017 6:36:13 EDT by Krunal Issa MD
[2017-03-16] MEDS ORDERED: Isosorbide MONOnitrate (24 HR) 60 MG TAB.ER.24H PO SCH (09:00)
== END 2017-03-15 17:55 | disposition home or self-care (01) ==
LOC: 3BNU
PROVIDERS: ADMIT Internal Medicine; ATTEND Registered Nurse

== ENCOUNTER 2018-09-03 05:40 | Inpatient (IN) ==
[2018-09-03] MEDS ORDERED: Naloxone 0.4 MG/ML INJ IVP PRN (08:34)
[2018-09-03] MEDS ORDERED: Furosemide 40 MG/4 ML VIAL IVP ONE (08:56)
[2018-09-03] MEDS ORDERED: Ipratropium/Albuterol Neb 3 ML IH PRN (08:57)
[2018-09-03 09:03] LABS: ABG Base Excess 0 mEq/L (-2 to 3); ABG HCO3 29 mEq/L (21-27); ABG Oxygen Saturation 96 % (95-98); ABG PCO2 62 mmHg (35-45); ABG PH 7.28 pH Units (7.32-7.45); ABG PO2 93 mmHg (85-104); ABG TCO2 31 mEq/L (20-26); Blood Gas Modality BIVENT; Blood Gas PEEP 6 cm H2O; Blood Gas VT 500 cc
[2018-09-03 09:09] LABS: Basophils % 0.3 %; Hematocrit 45.9 % (37.5-50.1); Hemoglobin 13.6 g/dL (12.9-16.9); Immature Granulocytes % 1.2 % (0-4); Lymphocytes # 1.2 K/mcL (0.6-4.6); Lymphocytes % 8.4 %; Mean Corpuscular HGB Conc 29.6 g/dL (31.6-35.5); Mean Corpuscular Hemoglobin 28.6 pg (28.0-33.3); Mean Corpuscular Volume 96.6 fL (83.0-100.0); Monocytes # 0.2 K/mcL (0.0-1.3); Monocytes % 1.4 %; Neutrophils # 12.3 K/mcL (1.6-8.9); Platelet Count 210 K/mcL (140-400); Red Blood Count 4.75 M/mcL (4.19-5.50); Red Cell Distribution Width 16.6 % (11.5-14.5); Segmented Neutrophils % 88.7 %
--- NOTE | 2018-09-03 09:09 | Pulmonology Consult Note ---
<Manuelito Guerrero S - Last Filed: 09/03/18 10:46> Date of Encounter: 09/03/18 Time of Encounter: 09:05 Assessment and Plan (1) Respiratory failure with hypoxia and hypercapnia Current Visit: Yes Status: Acute May be 2/2 COPD exacerbation vs CHF exacerbation Patient on BIPAP FiO2 50%, waturating at 98% WBC of 13.9 Patient received dose of azithromycin and zosyn at [place] Started patient on IV levofloxacin 500 mg Blood cultures x2 ordered Lactate elevated at 2.9 ABG shows respiratory acidosis with pH 7.28, pCO2 62, HCO3 29, improved from previous ABG Will repeat labs Qualifiers: Chronicity: acute on chronic Qualified Code(s): J96.21 - Acute and chronic respiratory failure with hypoxia; J96.22 - Acute and chronic respiratory failure with hypercapnia (2) CHF (congestive heart failure) Current Visit: Yes Status: Acute Patient on BIPAP FiO2 50%, saturating at 98% Patient has LE edema He takes 80 mg lasix PO daily at home Ordered IV 40 mg lasix once Chest x-ray shows mild vascular congestion Qualifiers: Heart failure type: unspecified Qualified Code(s): I50.9 - Heart failure, unspecified (3) COPD exacerbation Current Visit: Yes Status: Acute Patient hasn't used CPAP at night for past week since it was broken Patient currently on BIPAP 50%, saturating at 98% Recent ABG shows resp acidosis with pH of 7.28, pCO2 of 62, HCO3 29 Started duonebs Started IV levofloxacin (4) HTN (hypertension) Current Visit: No Status: Chronic Patient's BP is 131/83 Will continue to monitor May need to restart home meds Qualifiers: Hypertension type: essential hypertension Qualified Code(s): I10 - Essential (primary) hypertension (5) Type 2 diabetes mellitus Current Visit: No Status: Chronic Patient's glucose is 265 Will start levemir 10 units at night Started on med dose sliding scale insulin Patient is currently NPO, may transition to diabetic diet later today Qualifiers: Diabetes mellitus meterman insulin use: without group home use Diabetes mellitus complication status: with unspecified complications Qualified Code(s) : E11.8 - Type 2 diabetes mellitus with unspecified complications (6) DVT prophylaxis Current Visit: Yes Status: Acute Subcutaneous heparin History of Present Illness Consult date: 09/03/18 Requesting physician: Amber Juárez Reason for consult: other (respiratory failure with hypercapnia and hypoxia) Chief complaint: shortness of breath History of present illness: 57 year old male with PMHx of COPD on 3.5L home O2, CHF, HTN, HLD, DM2 presented to [facility] ED via ambulance with shortness of breath. Initial ABG showed respiratory acidosis with a pH of 7.2. Patient given Narcan, duonebs, azithromycin, zosyn, and put on BIPAP at [facility]. Ethyl alcohol level was normal , negative urine drug screen, no evidence of UTI. Patient transferred to [facility] ICU for respiratory failure with hypoxia and hypercapnia. In ICU, patient is resting well on 50 FiO2 BIPAP. He is alert and oriented. Patient states he hasn't been able to use his CPAP at night for the past week because the connector broke. He admits to taking his prescribed dose of morphine and oxycontin for back and ankle pain last night. Patient admits to subjective fevers/chills for the past week with a productive cough. He has been taking his prescribed lasix 80 mg PO daily. He currently denies SOB, CP, abdominal pain, numbness/tingling. Past Med Surg Social Fam HX - Past Medical History Medical history: arthritis, asthma, CHF, COPD, coronary artery disease, diabetes , GERD, hyperlipidemia, hypertension, myocardial infarction, renal disease, TIA , other (JONAH) Psychiatric history: anxiety, depression, other - Past Surgical History Surgical History: angioplasty/stent, cholecystectomy, other Additional surgical history: CARDIAC STENTS TIMES 6. - Social History Smoking Status: Heavy tobacco smoker (Smoked for 50 years. 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 On average one to 2 packs per day outside of that. Reports that he is decreased in the last 2-3 months to half a pack a day. Reports that in the last 2-3 months he is decreased to half a pack per day.) Smokeless Tobacco Status: No Alcohol use: none, unknown Drug use: none, unknown - Family History Mother Hx Family Cardiac Disorders: Yes (unspecified) Hx Family Endocrine Disorder: Yes (DIABETES MELLITUS.) Medications and Allergies Albuterol Neb [Proventil Neb] 2.5 mg IH DAILY 03/15/17 [History] Albuterol Sulfate [Albuterol Inhaler] 2 puff IH Q4HR PRN 03/15/17 [History] Aspirin Enteric Coated [Aspirin EC] 325 mg PO DAILY tablet. 03/15/17 [Rx] Aspirin [Ecotrin] 325 mg PO DAILY 03/15/17 [History] Clopidogrel [Plavix] 75 mg PO DAILY 03/15/17 [History] Ergocalciferol (VITAMIN D2) [Vitamin D2] 50,000 unit PO QWEEK MDD 03/15 [History] Esomeprazole Magnesium [Nexium 24Hr] 20 mg PO DAILY 03/15/17 [History] Fenofibrate Nanocrystallized [Tricor] 145 mg PO DAILY 03/15/17 [History] GuaiFENesin ER [Mucinex] 1,200 mg PO BID tbbp.12hr 03/15/17 [Rx] Insulin ASPART [NovoLOG] 60 unit SQ TIDWM 03/15/17 [History] Insulin Glargine [Lantus] 100 unit SQ Q12H 03/15/17 [History] Isosorbide MONOnitrate (24 HR) [Imdur] 60 mg PO DAILY #30 tab.er.24h 03/15/17 [ Rx] Metformin HCl [Glucophage] 1,000 mg PO BID 03/15/17 [History] Metoprolol [Lopressor] 25 mg PO BID #60 tablet 03/15/17 [Rx] Multivit-Min/FA/Lycopen/Lutein [Centrum Silver Tablet] 1 tab PO DAILY 03/15/17 [ History] Nitroglycerin [Nitrostat] 0.4 mg SL 1-3XD PRN 03/15/17 [History] [place]-3 Fatty Acids [Fish Oil] 1,000 mg PO DAILY 03/15/17 [History] ARIPiprazole [Abilify] 10 mg PO DAILY 09/03/18 [History] Benzonatate [Tessalon] 200 mg PO DAILY 09/03/18 [History] Citalopram Hydrobromide [Citalopram HBr] 40 mg PO DAILY 09/03/18 [History] Furosemide [Lasix] 80 mg PO DAILY 09/03/18 [History] Gabapentin [Neurontin] 400 mg PO TID 09/03/18 [History] Lisinopril [Zestril] 20 mg PO DAILY 09/03/18 [History] Morphine Sulfate [Arymo ER] 15 mg PO BID 09/03/18 [History] OxyCODONE Immed Rel [Roxicodone 30 MG] 15 mg PO QID 09/03/18 [History] 3 Allergy/AdvReac Type Severity Reaction Status Date / Time No Known Allergies Allergy Verified 09/03/18 17:51 All Systems: The remainder of the systems were reviewed and are negative Physical Examination Vital Signs: Vital Signs, Last 4 Hours Temp Pulse Resp BP Pulse Ox 09/03/18 09:00 98.4 F 72 16 126/97 98 09/03/18 08:52 72 09/03/18 08:30 16 131/83 98 General appearance: no acute distress Eyes: nonicteric Effort: normal Auscultation: bilateral: wheezes Cardiovascular: regular rate and rhythm Gastrointestinal: soft, non-tender Extremities: pulses normal, edema (+2 pitting edema in LE to knees bilaterally) , other (venous stasis changes in LE bilaterally around ankles) normal mental status mood appropriate, affect normal Ventilator Settings Ventilator Settings: Ventilator Settings, Last 8 Hours Ventilator Tidal Volume 500 Setting Results - Laboratory Findings CBC and BMP: 09/03/18 08:54 09/03/18 08:54 ABG ABG pH 7.28 pH Units (7.32-7.45) L 09/03/18 08:59 ABG pCO2 62 mmHg (35-45) H 09/03/18 08:59 ABG pO2 93 mmHg (85-104) 09/03/18 08:59 ABG O2 Saturation 96 % (95-98) 09/03/18 08:59 Abnormal lab findings: Abnormal lab results ABG pH 7.28 pH Units (7.32-7.45) L 09/03/18 08:59 ABG pCO2 62 mmHg (35-45) H 09/03/18 08:59 ABG HCO3 29 mEq/L (21-27) H 09/03/18 08:59 ABG Total CO2 31 mEq/L (20-26) H 09/03/18 08:59 - Clinical Findings Intake & Output: Intake & Output 09/02/18 09/03/18 09/03/18 23:59 07:59 15:59 Output Total 400 / 400 Balance -400 / -400 Weight 155.8 kg Consult Discharge Plan - Plan Referrals: Elma Giordano [Primary Care Provider] - <Amber Juárez - Last Filed: 09/03/18 21:25> Date of Encounter: 09/03/18 All Systems: The remainder of the systems were reviewed and are negative Physical Examination Vital Signs: Vital Signs, Last 4 Hours Temp Pulse Resp BP Pulse Ox 09/03/18 21:00 88 09/03/18 20:15 98.9 F 09/03/18 20:00 80 94 151/68 09/03/18 19:50 16 95 09/03/18 19:30 88 09/03/18 19:00 88 22 151/68 93 09/03/18 18:00 84 16 163/76 96 Results - Laboratory Findings CBC and BMP: 09/03/18 08:54 09/03/18 17:01 ABG ABG pH 7.28 pH Units (7.32-7.45) L 09/03/18 08:59 ABG pCO2 62 mmHg (35-45) H 09/03/18 08:59 ABG pO2 93 mmHg (85-104) 09/03/18 08:59 ABG O2 Saturation 96 % (95-98) 09/03/18 08:59 Abnormal lab findings: Abnormal lab results WBC 13.9 K/mcL (4.3-11.1) H 09/03/18 08:54 MCHC 29.6 g/dL (31.6-35.5) L 09/03/18 08:54 RDW 16.6 % (11.5-14.5) H 09/03/18 08:54 Neutrophils # 12.3 K/mcL (1.6-8.9) H 09/03/18 08:54 ABG pH 7.28 pH Units (7.32-7.45) L 09/03/18 08:59 ABG pCO2 62 mmHg (35-45) H 09/03/18 08:59 ABG HCO3 29 mEq/L (21-27) H 09/03/18 08:59 ABG Total CO2 31 mEq/L (20-26) H 09/03/18 08:59 Carbon Dioxide 30 mEq/L (23-29) H 09/03/18 17:01 BUN 27 mg/dL (6-20) H 09/03/18 17:01 Glucose 214 mg/dL (70-105) H 09/03/18 17:01 POC Glucose 187 mg/dL (70-99) H 09/03/18 20:18 Lactic Acid 2.4 mmol/L (0.5-2.2) H 09/03/18 17:01 AST 43 Units/L (13-39) H 09/03/18 08:54 - Microbiology Findings Microbiology Findings: Microbiology, Last 48 Hours 09/03/18 10:32 Blood Culture - Preliminary Peripheral Venipuncture Culture is incubating and being continuously monitored for growth. Final report to follow. 09/03/18 10:32 Blood Culture - Preliminary Peripheral Venipuncture Culture is incubating and being continuously monitored for growth. Final report to follow. - Clinical Findings Intake & Output: Intake & Output 09/03/18 09/03/18 09/03/18 07:59 15:59 23:59 Intake Total 340 / 340 760 / 760 Output Total 1400 / 1400 1050 / 1050 Balance -1060 / -1060 -290 / -290 Weight 155.8 kg - Attending Attestation Please refer to H and P
[2018-09-03] MEDS ORDERED: Levofloxacin 500 MG/100 ML 500 MG/100 ML BAG IVPB ONE (09:31)
[2018-09-03 09:46] LABS: Albumin 3.6 g/dL (3.5-5.7); Albumin/Globulin Ratio 1.2 (1.1-2.2); Bilirubin,Total 0.4 mg/dL (0.3-1.0); Globulin 3.1 g/dL (2.4-3.5); Potassium 4.8 mEq/L (3.5-5.1); Total Protein 6.7 g/dL (6.4-8.9)
[2018-09-03] MEDS ORDERED: D5% in Water 1,000 ML IVC PRN (10:30)
[2018-09-03] MEDS ORDERED: *HR* Dextrose 50 % in Water (Syg) 50 ML SYRINGE IVP PRN (10:30)
[2018-09-03] MEDS ORDERED: Dextrose Gel 15 GM/37.5 ML TUBE PO PRN ×2 (10:30)
[2018-09-03] MEDS: Ipratropium/Albuterol Neb 3 ML IH SCH ×4 (11:19→23:19)
[2018-09-03] MEDS ORDERED: Insulin LISPRO 300 UNITS/3 ML VIAL SQ SCH (12:00)
[2018-09-03] MEDS: Insulin LISPRO 300 UNITS/3 ML VIAL SQ SCH (16:48)
[2018-09-03] MEDS: *HR* Heparin 5,000 UNIT/ML VIAL SQ SCH (16:48)
--- NOTE | 2018-09-03 16:48 | Pulmonology History & Physical ---
<CesarManuelito S - Last Filed: 09/03/18 16:31> Date of Encounter: 09/03/18 Time of Encounter: 09:00 Assessment and Plan (1) Respiratory failure with hypoxia and hypercapnia Current visit: Yes Status: Acute May be 2/2 COPD exacerbation vs CHF exacerbation Patient on BIPAP FiO2 50%, waturating at 98% WBC of 13.9 Patient received dose of azithromycin and zosyn at [place] Started patient on IV levofloxacin 500 mg Blood cultures x2 ordered Lactate elevated at 2.9 ABG shows respiratory acidosis with pH 7.28, pCO2 62, HCO3 29, improved from previous ABG Will repeat labs Qualifiers: Chronicity: acute on chronic Qualified Code(s): J96.21 - Acute and chronic respiratory failure with hypoxia; J96.22 - Acute and chronic respiratory failure with hypercapnia (2) CHF (congestive heart failure) Current visit: Yes Status: Acute Patient on BIPAP FiO2 50%, saturating at 98% Patient has LE edema He takes 80 mg lasix PO daily at home Ordered IV 40 mg lasix once Chest x-ray shows mild vascular congestion Qualifiers: Heart failure type: unspecified Qualified Code(s): I50.9 - Heart failure, unspecified (3) COPD exacerbation Current visit: Yes Status: Acute Patient hasn't used CPAP at night for past week since it was broken Patient currently on BIPAP 50%, saturating at 98% Recent ABG shows resp acidosis with pH of 7.28, pCO2 of 62, HCO3 29 Started duonebs Started IV levofloxacin 750 mg daily (4) HTN (hypertension) Current visit: No Status: Chronic Patient's BP is 131/83 Will continue to monitor May need to restart home meds Qualifiers: Hypertension type: essential hypertension Qualified Code(s): I10 - Essential (primary) hypertension (5) Type 2 diabetes mellitus Current visit: No Status: Chronic Patient's glucose is 265 Will start levemir 10 units at night Started on med dose sliding scale insulin Patient is currently NPO, may transition to diabetic diet later today Qualifiers: Diabetes mellitus jail insulin use: without rn long term care use Diabetes mellitus complication status: with unspecified complications Qualified Code(s) : E11.8 - Type 2 diabetes mellitus with unspecified complications (6) DVT prophylaxis Current visit: Yes Status: Acute Subcutaneous heparin History of Present Illness Chief complaint: Shortness of breath HPI: Mr. Graham is a 57 year old male with PMHx of COPD on 3.5L home O2, CHF, HTN, HLD, DM2 presented to [facility] ED via ambulance with shortness of breath. Initial ABG showed respiratory acidosis with a pH of 7.2. Patient given Narcan , duonebs, azithromycin, zosyn, and put on BIPAP at [facility]. Ethyl alcohol level was normal, negative urine drug screen, no evidence of UTI. Patient transferred to [place] ICU for respiratory failure with hypoxia and hypercapnia. In ICU, patient is resting well on 50 FiO2 BIPAP. He is alert and oriented. Patient states he hasn't been able to use his CPAP at night for the past week because the connector broke. He admits to taking his prescribed dose of morphine and oxycontin for back and ankle pain last night. Patient admits to subjective fevers/chills for the past week with a productive cough. He has been taking his prescribed lasix 80 mg PO daily. He currently denies SOB, CP, abdominal pain, numbness/tingling. Past Med Surg Social Fam HX - Past Medical History Medical history: arthritis, asthma, CHF, COPD, coronary artery disease, diabetes , GERD, hyperlipidemia, hypertension, myocardial infarction, renal disease, TIA , other (JONAH) Psychiatric history: anxiety, depression, other - Past Surgical History Surgical History: angioplasty/stent, cholecystectomy, other Additional surgical history: CARDIAC STENTS TIMES 6. - Social History Smoking Status: Heavy tobacco smoker (Smoked for 50 years. 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 On average one to 2 packs per day outside of that. Reports that he is decreased in the last 2-3 months to half a pack a day. Reports that in the last 2-3 months he is decreased to half a pack per day.) Packs per day: 1 Smokeless Tobacco Status: No Alcohol use: none, unknown Drug use: none, unknown - Family History Mother Hx Family Cardiac Disorders: Yes (unspecified) Hx Family Endocrine Disorder: Yes (DIABETES MELLITUS.) Medications and Allergies Albuterol Neb [Proventil Neb] 2.5 mg IH DAILY 03/15/17 [History] Albuterol Sulfate [Albuterol Inhaler] 2 puff IH Q4HR PRN 03/15/17 [History] Aspirin Enteric Coated [Aspirin EC] 325 mg PO DAILY tablet. 03/15/17 [Rx] Aspirin [Ecotrin] 325 mg PO DAILY 03/15/17 [History] Clopidogrel [Plavix] 75 mg PO DAILY 03/15/17 [History] Ergocalciferol (VITAMIN D2) [Vitamin D2] 50,000 unit PO QWEEK MDD 03/15 [History] Esomeprazole Magnesium [Nexium 24Hr] 20 mg PO DAILY 03/15/17 [History] Fenofibrate Nanocrystallized [Tricor] 145 mg PO DAILY 03/15/17 [History] GuaiFENesin ER [Mucinex] 1,200 mg PO BID tbbp.12hr 03/15/17 [Rx] Insulin ASPART [NovoLOG] 60 unit SQ TIDWM 03/15/17 [History] Insulin Glargine [Lantus] 100 unit SQ Q12H 03/15/17 [History] Isosorbide MONOnitrate (24 HR) [Imdur] 60 mg PO DAILY #30 tab.er.24h 03/15/17 [ Rx] Metformin HCl [Glucophage] 1,000 mg PO BID 03/15/17 [History] Metoprolol [Lopressor] 25 mg PO BID #60 tablet 03/15/17 [Rx] Multivit-Min/FA/Lycopen/Lutein [Centrum Silver Tablet] 1 tab PO DAILY 03/15/17 [ History] Nitroglycerin [Nitrostat] 0.4 mg SL 1-3XD PRN 03/15/17 [History] Kermit-3 Fatty Acids [Fish Oil] 1,000 mg PO DAILY 03/15/17 [History] ARIPiprazole [Abilify] 10 mg PO DAILY 09/03/18 [History] Benzonatate [Tessalon] 200 mg PO DAILY 09/03/18 [History] Citalopram Hydrobromide [Citalopram HBr] 40 mg PO DAILY 09/03/18 [History] Furosemide [Lasix] 80 mg PO DAILY 09/03/18 [History] Gabapentin [Neurontin] 400 mg PO TID 09/03/18 [History] Lisinopril [Zestril] 20 mg PO DAILY 09/03/18 [History] Morphine Sulfate [Arymo ER] 15 mg PO BID 09/03/18 [History] OxyCODONE Immed Rel [Roxicodone 30 MG] 15 mg PO QID 09/03/18 [History] 3 Allergy/AdvReac Type Severity Reaction Status Date / Time No Known Allergies Allergy Verified 09/03/18 17:51 All Systems: The remainder of the systems were reviewed and are negative Physical Examination Vital Signs: Vital Signs, Last 4 Hours Pulse Resp BP Pulse Ox 09/03/18 15:13 16 94 09/03/18 15:00 71 16 142/75 94 09/03/18 14:00 65 16 144/73 94 09/03/18 13:00 66 16 136/66 93 General appearance: no acute distress Eyes: nonicteric Effort: normal Auscultation: bilateral: wheezes Cardiovascular: regular rate and rhythm Gastrointestinal: soft, non-tender Extremities: pulses normal, edema (+2 pitting edema in LE to knees bilaterally) , other (venous stasis changes in LE bilaterally around ankles) normal mental status mood appropriate, affect normal Results - Laboratory Findings CBC and BMP: 09/03/18 08:54 09/03/18 08:54 ABG ABG pH 7.28 pH Units (7.32-7.45) L 09/03/18 08:59 ABG pCO2 62 mmHg (35-45) H 09/03/18 08:59 ABG pO2 93 mmHg (85-104) 09/03/18 08:59 ABG O2 Saturation 96 % (95-98) 09/03/18 08:59 Abnormal lab findings: Abnormal lab results WBC 13.9 K/mcL (4.3-11.1) H 09/03/18 08:54 MCHC 29.6 g/dL (31.6-35.5) L 09/03/18 08:54 RDW 16.6 % (11.5-14.5) H 09/03/18 08:54 Neutrophils # 12.3 K/mcL (1.6-8.9) H 09/03/18 08:54 ABG pH 7.28 pH Units (7.32-7.45) L 09/03/18 08:59 ABG pCO2 62 mmHg (35-45) H 09/03/18 08:59 ABG HCO3 29 mEq/L (21-27) H 09/03/18 08:59 ABG Total CO2 31 mEq/L (20-26) H 09/03/18 08:59 Sodium 134 mEq/L (136-145) L 09/03/18 08:54 BUN 27 mg/dL (6-20) H 09/03/18 08:54 Creatinine 1.52 mg/dL (0.70-1.30) H 09/03/18 08:54 Est GFR ( Amer) 57 (> 60) L 09/03/18 08:54 Est GFR (Non-Af Amer) 47 (> 60) L 09/03/18 08:54 Glucose 265 mg/dL (70-105) H 09/03/18 08:54 POC Glucose 239 mg/dL (70-99) H 09/03/18 11:50 Lactic Acid 2.9 mmol/L (0.5-2.2) H 09/03/18 08:54 AST 43 Units/L (13-39) H 09/03/18 08:54 <Amber Juárez S - Last Filed: 09/03/18 17:57> Date of Encounter: 09/03/18 History of Present Illness HPI: Mr. Graham is a 57 year old male All Systems: The remainder of the systems were reviewed and are negative Physical Examination Vital Signs: Vital Signs, Last 4 Hours Temp Pulse Resp BP Pulse Ox 09/03/18 17:00 84 16 147/69 96 09/03/18 16:00 98.8 F 75 16 151/70 94 09/03/18 15:13 16 94 09/03/18 15:00 71 16 142/75 94 09/03/18 14:00 65 16 144/73 94 Results - Laboratory Findings CBC and BMP: 09/03/18 08:54 09/03/18 17:01 ABG ABG pH 7.28 pH Units (7.32-7.45) L 09/03/18 08:59 ABG pCO2 62 mmHg (35-45) H 09/03/18 08:59 ABG pO2 93 mmHg (85-104) 09/03/18 08:59 ABG O2 Saturation 96 % (95-98) 09/03/18 08:59 Abnormal lab findings: Abnormal lab results WBC 13.9 K/mcL (4.3-11.1) H 09/03/18 08:54 MCHC 29.6 g/dL (31.6-35.5) L 09/03/18 08:54 RDW 16.6 % (11.5-14.5) H 09/03/18 08:54 Neutrophils # 12.3 K/mcL (1.6-8.9) H 09/03/18 08:54 ABG pH 7.28 pH Units (7.32-7.45) L 09/03/18 08:59 ABG pCO2 62 mmHg (35-45) H 09/03/18 08:59 ABG HCO3 29 mEq/L (21-27) H 09/03/18 08:59 ABG Total CO2 31 mEq/L (20-26) H 09/03/18 08:59 Carbon Dioxide 30 mEq/L (23-29) H 09/03/18 17:01 BUN 27 mg/dL (6-20) H 09/03/18 17:01 Glucose 214 mg/dL (70-105) H 09/03/18 17:01 POC Glucose 215 mg/dL (70-99) H 09/03/18 16:40 Lactic Acid 2.4 mmol/L (0.5-2.2) H 09/03/18 17:01 AST 43 Units/L (13-39) H 09/03/18 08:54 - Attending Attestation I saw and evaluated this patient and my medical decision-making was reviewed with the Resident Physician. I agree with the documented findings, disposition and treatment plan as described except to the extent set forth below. We independently had [id number] contact with the patient Patient seen and examined at bedside Labs, radiology, chart personally reviewed. Management was reviewed during multidisciplinary critical care rounds. 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 Patient's chest x-ray shows more of pulmonary vascular congestion rather than pneumonia we will treat with bronchodilators, levofloxacin and IV diuresis as tolerated Cards: Acute on chronic diastolic heart failure to continue diuresis as tolerated to trend troponins. FEN-GI: Liquid diet for today will advance diet tomorrow. Renal: Acute kidney injury serum creatinine improved on diuresis most likely due to cardiorenal syndrome ID: To continue levofloxacin low suspicion for pneumonia Heme/Onc: Prophylaxis with heparin Endo: Glucose Monitored Integ/MSK: Skin Care per routine ICU Nursing Protocol to prevent ulcers. Lines: All lines examined without evidence of infection : Dispo: To remain in ICU for possible decline in respiratory status. CODE: Full Code.
[2018-09-03 17:30] LABS: BUN/Creatinine Ratio 22 (6-26); Blood Urea Nitrogen 27 mg/dL (6-20); Calcium 8.9 mg/dL (8.6-10.3); Carbon Dioxide 30 mEq/L (23-29); Chloride 101 mEq/L (98-107); Glucose 214 mg/dL (70-105); Osmolality,Calculated 294 (280-300); Potassium 4.7 mEq/L (3.5-5.1); Sodium 136 mEq/L (136-145); eGFR For Non-African Americans > 60 (> 60)
[2018-09-03] MEDS ORDERED: Insulin DETEMIR 100 UNIT/ML X5UNITS SQ SCH (21:00)
[2018-09-03] MEDS ORDERED: MORPHINE SULFATE 10 MG PO SCH (21:45)
[2018-09-03] MEDS: *HR* OxyCODONE Immed Rel 5 MG TABLET PO PRN (22:16)
[2018-09-04] MEDS: Ipratropium/Albuterol Neb 3 ML IH SCH ×6 (03:46→23:21)
[2018-09-04] MEDS: *HR* OxyCODONE Immed Rel 5 MG TABLET PO PRN ×4 (04:07→20:59)
[2018-09-04] MEDS: *HR* Heparin 5,000 UNIT/ML VIAL SQ SCH ×2 (04:08→16:43)
[2018-09-04 04:33] LABS: Basophils % 0.2 %; Eosinophils % 0.1 %; Hematocrit 40.4 % (37.5-50.1); Hemoglobin 12.3 g/dL (12.9-16.9); Immature Granulocytes % 0.8 % (0-4); Lymphocytes # 2.3 K/mcL (0.6-4.6); Lymphocytes % 12.6 %; Mean Corpuscular HGB Conc 30.4 g/dL (31.6-35.5); Mean Corpuscular Hemoglobin 28.4 pg (28.0-33.3); Mean Corpuscular Volume 93.3 fL (83.0-100.0); Mean Platelet Volume 11.8 fL (9.4-12.4); Monocytes # 1.2 K/mcL (0.0-1.3); Monocytes % 6.3 %; Neutrophils # 14.6 K/mcL (1.6-8.9); Platelet Count 201 K/mcL (140-400); Red Blood Count 4.33 M/mcL (4.19-5.50)
[2018-09-04 04:51] LABS: BUN/Creatinine Ratio 25 (6-26); Blood Urea Nitrogen 25 mg/dL (6-20); Calcium 8.6 mg/dL (8.6-10.3); Carbon Dioxide 30 mEq/L (23-29); Chloride 103 mEq/L (98-107); Glucose 148 mg/dL (70-105); Osmolality,Calculated 291 (280-300); Potassium 4.4 mEq/L (3.5-5.1); Sodium 137 mEq/L (136-145); eGFR For Non-African Americans > 60 (> 60)
[2018-09-04 05:05] LABS: ABG Base Excess 6 mEq/L (-2 to 3); ABG HCO3 34 mEq/L (21-27); ABG Oxygen Saturation 98 % (95-98); ABG PCO2 65 mmHg (35-45); ABG PH 7.33 pH Units (7.32-7.45); ABG PO2 122 mmHg (85-104); ABG TCO2 36 mEq/L (20-26); Blood Gas Modality AVAPS; Blood Gas PEEP 6 cm H2O; Blood Gas VT 500 cc
[2018-09-04] MEDS ORDERED: Furosemide 40 MG/4 ML VIAL IVP ONE (08:32)
--- NOTE | 2018-09-04 08:52 | Pulmonology Progress Note ---
Date of Encounter: 09/04/18 Time of Encounter: 08:30 Assessment and Plan (1) Respiratory failure with hypoxia and hypercapnia Current Visit: Yes Status: Acute Patient with acute on chronic hypoxic respiratory failure developed hypercarbia after excessive opioid use for his chronic pain issues did not use his noninvasive ventilation came with altered mental status patient did well with diuresis and noninvasive ventilation patient is off BiPAP during the day will need BiPAP during napping and the night time patient V/Q mismatch is stable acceptable oxygenation and ventilation we will transfer him to medical telemetry. Qualifiers: Chronicity: acute Qualified Code(s): J96.01 - Acute respiratory failure with hypoxia; J96.02 - Acute respiratory failure with hypercapnia (2) CHF (congestive heart failure) Current Visit: Yes Status: Acute Patient has acute on chronic diastolic heart failure to continue diuresis to keep his blood pressure less than 140. Qualifiers: Heart failure type: unspecified Qualified Code(s): I50.9 - Heart failure, unspecified (3) JONAH and COPD overlap syndrome Current Visit: No Status: Chronic Patient will need education about was his COPD overlap syndrome that regular usage of BiPAP during mapping and during sleep. Send home on Albuterol nebulizer and Symbicort . (4) COPD (chronic obstructive pulmonary disease) Current Visit: No Status: Chronic symptoms are stable will need outpatient 4-6 weeks follow up with [facility] Qualifiers: COPD type: unspecified COPD Qualified Code(s): J44.9 - Chronic obstructive pulmonary disease, unspecified (5) DVT prophylaxis Current Visit: Yes Status: Acute To continue Heparin subcutaneous Subjective Principal diagnosis: acute on chronic respiratory failure Interval history: Patient came with acute hypercarbia due to worsening hypoventilation because of opiate use and noncompliance with noninvasive ventilation patient is doing well off BiPAP during the day picture was complicated by acute on chronic diastolic heart failure patient tolerated the diuresis well. Patient denies any complaints did not have any acute events overnight. Objective PUL Vital signs: Last Vital Signs Temp 98.0 F 09/04/18 03:58 Pulse 72 09/04/18 06:00 Resp 20 09/04/18 06:00 BP 144/72 09/04/18 06:00 Pulse Ox 94 09/04/18 06:00 Ventilator Settings Ventilator Settings: Ventilator Settings, Last 8 Hours Ventilator Tidal Volume 500 Setting Results - Laboratory Findings CBC and BMP: 09/04/18 04:07 09/04/18 04:07 ABG ABG pH 7.33 pH Units (7.32-7.45) 09/04/18 05:02 ABG pCO2 65 mmHg (35-45) H 09/04/18 05:02 ABG pO2 122 mmHg (85-104) H 09/04/18 05:02 ABG O2 Saturation 98 % (95-98) 09/04/18 05:02 Abnormal lab findings: Abnormal lab results WBC 18.3 K/mcL (4.3-11.1) H 09/04/18 04:07 Hgb 12.3 g/dL (12.9-16.9) L 09/04/18 04:07 MCHC 30.4 g/dL (31.6-35.5) L 09/04/18 04:07 RDW 16.0 % (11.5-14.5) H 09/04/18 04:07 Neutrophils # 14.6 K/mcL (1.6-8.9) H 09/04/18 04:07 ABG pCO2 65 mmHg (35-45) H 09/04/18 05:02 ABG pO2 122 mmHg (85-104) H 09/04/18 05:02 ABG HCO3 34 mEq/L (21-27) H 09/04/18 05:02 ABG Total CO2 36 mEq/L (20-26) H 09/04/18 05:02 ABG Base Excess 6 mEq/L (-2 to 3) H 09/04/18 05:02 Carbon Dioxide 30 mEq/L (23-29) H 09/04/18 04:07 BUN 25 mg/dL (6-20) H 09/04/18 04:07 Glucose 148 mg/dL (70-105) H 09/04/18 04:07 POC Glucose 134 mg/dL (70-99) H 09/04/18 07:43 Lactic Acid 2.4 mmol/L (0.5-2.2) H 09/03/18 17:01 AST 43 Units/L (13-39) H 09/03/18 08:54 - Microbiology Findings Microbiology Findings: Microbiology, Last 48 Hours 09/03/18 10:32 Blood Culture - Preliminary Peripheral Venipuncture Culture is incubating and being continuously monitored for growth. Final report to follow. 10/06/18 10:32 Blood Culture - Preliminary Peripheral Venipuncture Culture is incubating and being continuously monitored for growth. Final report to follow. - Clinical Findings Intake & Output: Intake & Output 09/03/18 09/04/18 09/04/18 23:59 07:59 15:59 Intake Total 760 / 760 360 / 360 Output Total 1350 / 1350 700 / 700 Balance -590 / -590 -340 / -340 Weight 157 kg Consult Discharge Plan - Plan Referrals: Elma Giordano [Primary Care Provider] -
[2018-09-04] MEDS ORDERED: Levofloxacin 750 MG/150 ML 750 MG/150 ML BAG IVPB SCH (09:00)
[2018-09-04] MEDS ORDERED: Levofloxacin 500 MG/100 ML 500 MG/100 ML BAG IVPB SCH (09:00)
[2018-09-04] MEDS ORDERED: Gabapentin 400 MG CAPSULE PO SCH (09:00)
[2018-09-04] MEDS: Insulin LISPRO 300 UNITS/3 ML VIAL SQ SCH ×4 (09:58→21:00)
[2018-09-04] MEDS ORDERED: Dextrose Gel 15 GM/37.5 ML TUBE PO PRN ×2 (11:20)
[2018-09-04] MEDS ORDERED: *HR* Dextrose 50 % in Water (Syg) 50 ML SYRINGE IVP PRN (11:20)
[2018-09-04] MEDS ORDERED: Naloxone 0.4 MG/ML INJ IVP PRN (11:20)
[2018-09-04] MEDS ORDERED: Ipratropium/Albuterol Neb 3 ML IH PRN (11:20)
[2018-09-04] MEDS ORDERED: D5% in Water 1,000 ML IVC PRN (11:20)
[2018-09-04] MEDS: Gabapentin 400 MG CAPSULE PO SCH ×2 (14:23→20:59)
[2018-09-04] MEDS: *HR* Morphine Sulfate SR (12 HR) 15 MG TABLET.ER PO PRN (14:23)
[2018-09-04] MEDS: Insulin DETEMIR 100 UNIT/ML X5UNITS SQ SCH (21:00)
[2018-09-04] MEDS ORDERED: Insulin LISPRO 300 UNITS/3 ML VIAL SQ SCH (21:00)
[2018-09-05] MEDS: *HR* Morphine Sulfate SR (12 HR) 15 MG TABLET.ER PO PRN (03:47)
[2018-09-05] MEDS: Ipratropium/Albuterol Neb 3 ML IH SCH ×6 (03:55→23:38)
[2018-09-05] MEDS: *HR* OxyCODONE Immed Rel 5 MG TABLET PO PRN ×3 (06:33→19:24)
[2018-09-05] MEDS: *HR* Heparin 5,000 UNIT/ML VIAL SQ SCH ×2 (06:34→17:00)
[2018-09-05] MEDS: Insulin LISPRO 300 UNITS/3 ML VIAL SQ SCH ×4 (07:50→21:24)
[2018-09-05] MEDS: Gabapentin 400 MG CAPSULE PO SCH ×3 (07:54→21:38)
[2018-09-05] MEDS ORDERED: Albuterol 2.5 MG/3 ML NEBULIZER IH PRN (08:06)
[2018-09-05 08:58] LABS: Basophils % 0.4 %; Eosinophils # 0.2 K/mcL (0.0-0.6); Eosinophils % 2.1 %; Hematocrit 41.2 % (37.5-50.1); Hemoglobin 12.5 g/dL (12.9-16.9); Immature Granulocytes % 0.6 % (0-4); Lymphocytes # 2.3 K/mcL (0.6-4.6); Mean Corpuscular HGB Conc 30.3 g/dL (31.6-35.5); Mean Corpuscular Hemoglobin 29.1 pg (28.0-33.3); Mean Corpuscular Volume 95.8 fL (83.0-100.0); Mean Platelet Volume 11.5 fL (9.4-12.4); Monocytes # 0.7 K/mcL (0.0-1.3); Monocytes % 7.2 %; Neutrophils # 6.6 K/mcL (1.6-8.9); Platelet Count 184 K/mcL (140-400); Red Cell Distribution Width 16.4 % (11.5-14.5); Segmented Neutrophils % 66.7 %
[2018-09-05] MEDS ORDERED: Levofloxacin 750 MG/150 ML 750 MG/150 ML BAG IVPB SCH (09:00)
[2018-09-05 09:16] LABS: BUN/Creatinine Ratio 21 (6-26); Blood Urea Nitrogen 18 mg/dL (6-20); Calcium 9.1 mg/dL (8.6-10.3); Carbon Dioxide 35 mEq/L (23-29); Chloride 101 mEq/L (98-107); Glucose 142 mg/dL (70-105); Magnesium 1.7 mg/dL (1.6-2.6); Osmolality,Calculated 292 (280-300); Potassium 4.3 mEq/L (3.5-5.1); Sodium 139 mEq/L (136-145); eGFR For Non-African Americans > 60 (> 60)
[2018-09-05] MEDS ORDERED: Perflutren Lipid Microsphere 1.3 ML in 0.9 % Sodium Chloride 8.7 ML IVP ONE (10:23)
--- NOTE | 2018-09-05 10:26 | Internal Med Progress Note ---
<Preston Hampton - Last Filed: 09/05/18 12:41> Hospitalist Progress Note - Encounter Date of Encounter: 09/05/18 Time of Encounter: 09:30 - Subjective Interval History: Pt is a pleasant 57 y/o male presenting with COPD exacerbation secondary to opioid misuse and lack of CPAP for the past week. Pt seen and evaluated at bedside and is A&Ox3. Pt is in no acute distress and reports improved sleep on BiPAP. Pt continues to have a cough productive of a white sputum. Pt SOB continues to improve. Currently pt is on Day 2 of Abx prophylaxis with Levaquin Pt utilizes BiPAP at night and with naps. Uses nasal cannula throughout the day (4 L) with goal of returning to baseline use of 3.5L. Pt will be given IV Lasix 80 mg today with plans to switch to oral dosing tomorrow Repeat echocardiogram pending Blood cx results pending Possible d/c tomorrow - Exam Vitals: Temp Pulse Resp BP Pulse Ox 98.9 F 79 17 146/80 100 09/05/18 07:38 09/05/18 07:38 09/05/18 07:38 09/05/18 07:38 09/05/18 07:38 Exam: General: Pt is a pleasant man, moderately fatigued Head: Normocephalic. Atraumatic CV: RRR. No murmurs rubs or gallops. Lungs: No wheezing, moderate rales Extremities: Moderate edema in the LE Skin: Dry and intact. Some lesions on the fingertips. GI: Bowel sounds in all 4 quadrants. No pain to palpation - Assessment and Plan (1) Respiratory failure with hypoxia and hypercapnia Current Visit: Yes Status: Acute Assessment and Plan: Evening of (09/02) pt took larger than prescribed dose of morphine and oxycontin for back and ankle to aid sleep difficulty due to broken CPAP for the past week ABG (09/03) Respiratory Acidosis pH 7.2 ABG (09/04) Resolved acidosis, pH 7.33 CXR: Pulmonary vascular congestion Pt progressing well on IV diuresis and BiPAP use throughout the night V/Q mismatch stable Plan: Follow up with Pulmonology Telemetry Discharge pt on Albuterol and Symbicort (2) COPD exacerbation Current Visit: Yes Status: Acute Assessment and Plan: Pt is stable with BiPAP use during napping and sleeping Pt uses Nasal cannula otherwise, most recently at 4L O2 (Pt uses 3.5L at home) Pt on Day 2 of Abx Prophylaxis with Levaquin (Started 09/04) Plan: F/u with Pulm outpatient in 4-6 wks Prophylactic Levaquin 750 mg (3) CHF (congestive heart failure) Current Visit: Yes Status: Acute Assessment and Plan: IV Diuresis as tolerated to keep BP under 140 Last echocardiogram in 2017 Plan: IV Furosemide 80 mg today followed by switch to oral dosing tomorrow (09/06) Repeat echocardiogram pending (4) JONAH (obstructive sleep apnea) Current Visit: No Status: Chronic Assessment and Plan: Educate pt on necessity of BiPAP use during sleep (5) DVT prophylaxis Current Visit: Yes Status: Acute Assessment and Plan: Heparin SubQ - Time Spent with Patient Total time spent is greater than 50% in coordination of care (as documented) at patient's floor/unit and/or counseling patient: Greater than 35 minutes Plan of Care Discussed with: patient Internal Medicine: Result - Labs CBC & Chem 7: 09/05/18 08:13 09/05/18 08:13 Labs: Short CBC 09/05/18 Range/Units 08:13 WBC 9.8 (4.3-11.1) K/mcL Hgb 12.5 L (12.9-16.9) g/dL Hct 41.2 (37.5-50.1) % Plt Count 184 (140-400) K/mcL Neutrophils # 6.6 (1.6-8.9) K/mcL BMP 09/05/18 08:13 Sodium 139 Potassium 4.3 Chloride 101 Carbon Dioxide 35 H BUN 18 Creatinine 0.86 Glucose 142 H Calcium 9.1 - ABG Interpretation ABG results: ABG ABG pH 7.33 pH Units (7.32-7.45) 09/04/18 05:02 ABG pCO2 65 mmHg (35-45) H 09/04/18 05:02 ABG pO2 122 mmHg (85-104) H 09/04/18 05:02 ABG O2 Saturation 98 % (95-98) 09/04/18 05:02 Consult Discharge Plan - Plan Referrals: Elma Giordano [Primary Care Provider] - <Scott Oviedo - Last Filed: 09/05/18 17:49> Hospitalist Progress Note - Encounter Date of Encounter: 09/05/18 - Exam Vitals: Temp Pulse Resp BP Pulse Ox 98.8 F 75 17 189/70 93 09/05/18 16:29 09/05/18 16:29 09/05/18 16:29 09/05/18 16:29 09/05/18 16:29 - Time Spent with Patient Total time spent is greater than 50% in coordination of care (as documented) at patient's floor/unit and/or counseling patient: Internal Medicine: Result - Labs CBC & Chem 7: 09/05/18 08:13 09/05/18 08:13 Labs: Short CBC 09/05/18 Range/Units 08:13 WBC 9.8 (4.3-11.1) K/mcL Hgb 12.5 L (12.9-16.9) g/dL Hct 41.2 (37.5-50.1) % Plt Count 184 (140-400) K/mcL Neutrophils # 6.6 (1.6-8.9) K/mcL BMP 09/05/18 08:13 Sodium 139 Potassium 4.3 Chloride 101 Carbon Dioxide 35 H BUN 18 Creatinine 0.86 Glucose 142 H Calcium 9.1 - ABG Interpretation ABG results: ABG ABG pH 7.33 pH Units (7.32-7.45) 09/04/18 05:02 ABG pCO2 65 mmHg (35-45) H 09/04/18 05:02 ABG pO2 122 mmHg (85-104) H 09/04/18 05:02 ABG O2 Saturation 98 % (95-98) 09/04/18 05:02 - Impressions Impressions Echocardiogram 09/05/18 08:06 Impressions: Technically sub-optimal due to body habitus. LVEF 60%. Mildly dilated left ventricle. Mild concentric left ventricular hypertrophy. Mild left ventricular diastolic dysfunction. Right ventricle was not well visualized. Normal function noted by Doppler analysis. No evidence of pulmonary hypertension. RVSP not well obtained and could be underestimated. - Attending Attestation The history, physical exam, and medical decision making was performed by the medical student Dr. Hampton either while I was physically present and actively involved or I personally re-performed the exam and medical decision making. I have verified the accuracy of the medical student's documentation with regards to the history, physical exam findings, and medical decision making. Mr. Graham is a 57 year old male with PMHx of COPD on 3.5L home O2, Diastolic CHF, HTN, HLD, DM2 presented to [facility] ED via ambulance with shortness of breath. Initial ABG showed respiratory acidosis with a pH of 7.2. Patient given Narcan, duonebs, azithromycin, zosyn, and put on BIPAP at [facility]. Pt was admitted into our ICU initially and treated him with broad spec abx, steroids , Duoneb and Continuous BiPAP. His symptoms started improving slowly and he was transferred to [facility] for further care. Today he is alert, awake and O x 3. Denied any CP. Still on 4 lit O2. Gen: A, A, O x 3 Chest: Diminished BS B/l, moderate wheezing, brenden rales, no ronchi Heart: S1S2+ RRR No murmurs Abd: Soft, NT, BS+, distended Ext: 2+ edema, No calf tenderness a/p 1. Acute on chronic hypoxic and hypercapneic resp failure 2. Acute on chronic diastolic CHF exacerbation 3. Chronic narcotic dependence cont duoneb and O2 BiPAP as needed and QHS 2 D Echo ordered IV lasix 40 BID <Preston Hampton S - Last Filed: 09/05/18 12:41> (1) Respiratory failure with hypoxia and hypercapnia Qualifiers: Chronicity: acute Qualified Code(s): J96.01 - Acute respiratory failure with hypoxia; J96.02 - Acute respiratory failure with hypercapnia (3) CHF (congestive heart failure) Qualifiers: Heart failure type: unspecified
[2018-09-05] MEDS: Furosemide 40 MG/4 ML VIAL IVP SCH (17:00)
[2018-09-05] MEDS: *HR* Morphine Sulfate SR (12 HR) 15 MG TABLET.ER PO SCH (17:00)
[2018-09-05] MEDS ORDERED: *HR* OxyCODONE Immed Rel 5 MG TABLET PO ONE (21:20)
[2018-09-05] MEDS: Lisinopril 20 MG TABLET PO SCH (21:37)
[2018-09-05] MEDS: Insulin DETEMIR 100 UNIT/ML X5UNITS SQ SCH (21:42)
[2018-09-06] MEDS: *HR* OxyCODONE Immed Rel 15 MG TABLET PO PRN ×3 (01:38→14:20)
[2018-09-06] MEDS: Ipratropium/Albuterol Neb 3 ML IH SCH ×4 (03:43→15:29)
[2018-09-06 05:30] LABS: Basophils % 0.3 %; Eosinophils # 0.5 K/mcL (0.0-0.6); Eosinophils % 4.6 %; Hematocrit 39.9 % (37.5-50.1); Immature Granulocytes % 0.7 % (0-4); Lymphocytes # 2.6 K/mcL (0.6-4.6); Lymphocytes % 24.4 %; Mean Corpuscular HGB Conc 30.1 g/dL (31.6-35.5); Mean Corpuscular Hemoglobin 28.3 pg (28.0-33.3); Mean Corpuscular Volume 94.1 fL (83.0-100.0); Mean Platelet Volume 10.9 fL (9.4-12.4); Monocytes # 0.9 K/mcL (0.0-1.3); Monocytes % 8.1 %; Neutrophils # 6.5 K/mcL (1.6-8.9); Platelet Count 174 K/mcL (140-400); Red Blood Count 4.24 M/mcL (4.19-5.50); Red Cell Distribution Width 16.3 % (11.5-14.5); Segmented Neutrophils % 61.9 %
[2018-09-06] MEDS: *HR* Morphine Sulfate SR (12 HR) 15 MG TABLET.ER PO SCH (05:46)
[2018-09-06 05:48] LABS: BUN/Creatinine Ratio 19 (6-26); Blood Urea Nitrogen 16 mg/dL (6-20); Carbon Dioxide 33 mEq/L (23-29); Chloride 101 mEq/L (98-107); Glucose 116 mg/dL (70-105); Magnesium 1.5 mg/dL (1.6-2.6); Osmolality,Calculated 288 (280-300); Potassium 3.9 mEq/L (3.5-5.1); Sodium 138 mEq/L (136-145); eGFR For Non-African Americans > 60 (> 60)
[2018-09-06] MEDS: *HR* Heparin 5,000 UNIT/ML VIAL SQ SCH (05:48)
[2018-09-06] MEDS: Lisinopril 20 MG TABLET PO SCH (08:07)
[2018-09-06] MEDS: Furosemide 40 MG/4 ML VIAL IVP SCH (08:08)
[2018-09-06] MEDS: Insulin LISPRO 300 UNITS/3 ML VIAL SQ SCH ×2 (08:08→12:11)
[2018-09-06] MEDS: Gabapentin 400 MG CAPSULE PO SCH ×2 (08:08→14:20)
[2018-09-06] MEDS ORDERED: levoFLOXacin 750 MG TABLET PO SCH (09:00)
--- NOTE | 2018-09-06 09:28 | Internal Med Progress Note ---
Hospitalist Progress Note - Encounter Date of Encounter: 09/06/18 Time of Encounter: 08:30 - Subjective Interval History: Pt is a pleasant 57 y/o male seen and evaluated at bedside. Pt is A&Ox3 and is in no acute distress. Pts sleep continues to improve and is experiencing no CP or discomfort. Pt continues to utilize BiPAP throughout sleep and naps. Pt continues to report cough productive of white sputum and states that he has congestion in his sinuses. Pt is on nasal cannula at 2.5L which is his lower than baseline at home of 3.5L. Pt is on third day of prophylactic Levaquin tx. Blood cx results pending Possible d/c today - Exam Vitals: Temp Pulse Resp BP Pulse Ox 98.6 F 73 19 171/80 95 09/06/18 08:01 09/06/18 08:01 09/06/18 08:01 09/06/18 08:01 09/06/18 08:01 Exam: General: Pt appears to be fatigued but in no acute distress Head: Atraumatic. Normocephalic. Sinuses nontender to percussion CV: RRR. No murmurs rubs or gallops Lungs: Diffuse rales throughout lungs. Neuro: Strength 5/5 throughout. No sensory deficits. Abdomen: Bowel sounds 4/4 quadrants. No tenderness to palpation Skin: Dry and intact - Assessment and Plan (1) Respiratory failure with hypoxia and hypercapnia Current Visit: Yes Status: Acute Assessment and Plan: Evening of (09/02) pt took larger than prescribed dose of morphine and oxycontin for back and ankle to aid sleep difficulty due to broken CPAP for the past week ABG (09/03) Respiratory Acidosis pH 7.2 ABG (09/04) Resolved acidosis, pH 7.33 CXR: Pulmonary vascular congestion Pt progressing well on IV diuresis and BiPAP use throughout the night V/Q mismatch stable Plan: Follow up with Pulmonology Telemetry Discharge pt on Albuterol and Symbicort (2) COPD exacerbation Current Visit: Yes Status: Acute Assessment and Plan: Pt is stable with BiPAP use during napping and sleeping Pt uses Nasal cannula otherwise, most recently at 2.5L O2 (Pt uses 3.5L at home) Pt on Day 3 of Abx Prophylaxis with Levaquin (Started 09/04) Plan: F/u with Pulm outpatient in 4-6 wks Prophylactic Levaquin 750 mg (3) CHF (congestive heart failure) Current Visit: Yes Status: Acute Assessment and Plan: IV Diuresis as tolerated to keep BP under 140 (4) JONAH (obstructive sleep apnea) Current Visit: No Status: Chronic Assessment and Plan: Educate pt on necessity of BiPAP use during sleep (5) DVT prophylaxis Current Visit: Yes Status: Acute Assessment and Plan: SubQ Heparin - Time Spent with Patient Total time spent is greater than 50% in coordination of care (as documented) at patient's floor/unit and/or counseling patient: Greater than 35 minutes Plan of Care Discussed with: patient Internal Medicine: Result - Labs CBC & Chem 7: 09/06/18 05:13 09/06/18 05:13 Labs: Short CBC 09/06/18 Range/Units 05:13 WBC 10.5 (4.3-11.1) K/mcL Hgb 12.0 L (12.9-16.9) g/dL Hct 39.9 (37.5-50.1) % Plt Count 174 (140-400) K/mcL Neutrophils # 6.5 (1.6-8.9) K/mcL BMP 09/06/18 05:13 Sodium 138 Potassium 3.9 Chloride 101 Carbon Dioxide 33 H BUN 16 Creatinine 0.84 Glucose 116 H Calcium 9.0 - ABG Interpretation ABG results: ABG ABG pH 7.33 pH Units (7.32-7.45) 09/04/18 05:02 ABG pCO2 65 mmHg (35-45) H 09/04/18 05:02 ABG pO2 122 mmHg (85-104) H 09/04/18 05:02 ABG O2 Saturation 98 % (95-98) 09/04/18 05:02 - Impressions Impressions Echocardiogram 09/05/18 08:06 Impressions: Technically sub-optimal due to body habitus. LVEF 60%. Mildly dilated left ventricle. Mild concentric left ventricular hypertrophy. Mild left ventricular diastolic dysfunction. Right ventricle was not well visualized. Normal function noted by Doppler analysis. No evidence of pulmonary hypertension. RVSP not well obtained and could be underestimated. Consult Discharge Plan - Plan Referrals: Elma Giordano [Primary Care Provider] - Prescriptions: Budesonide/Formoterol 160/4.5 [Symbicort 160/4.5] 1 puff IH BIDR 30 Days #60 hfa.aer.ad Furosemide [Lasix] 40 mg PO BID 30 Days #60 tablet levoFLOXacin [Levaquin] 750 mg PO DAILY #3 tablet (1) Respiratory failure with hypoxia and hypercapnia Qualifiers: Chronicity: acute Qualified Code(s): J96.01 - Acute respiratory failure with hypoxia; J96.02 - Acute respiratory failure with hypercapnia (3) CHF (congestive heart failure) Qualifiers: Heart failure type: unspecified
[2018-09-06 11:56] VITALS: BP 160/81
--- NOTE | 2018-09-06 12:23 | Discharge Summary ---
Orders not resulted at time of discharge: Pending orders 09/03/18 10:32 Culture,Blood [BC] Stat Date of Encounter: 09/06/18 Time of Encounter: 12:20 - Discharge Diagnosis (1) Respiratory failure with hypoxia and hypercapnia Priority: Primary Status: Acute Assessment and Plan: 57 year old male with PMHx of COPD on 3.5L home O2, CHF, HTN, HLD, DM2 presented to [facility] ED via ambulance with shortness of breath. Initial ABG showed respiratory acidosis with a pH of 7.2. Patient given Narcan, duonebs, azithromycin, zosyn, and put on BIPAP at [facility]. Ethyl alcohol level was normal , negative urine drug screen, no evidence of UTI. Patient transferred to [place] ICU for respiratory failure with hypoxia and hypercapnia He was admitted to the ICU with acute respiratory failure with hypoxia and hypercapnia likely secondary to COPD and diastolic CHF exacerbation. He was started on BIPAP, duo nebs, lasix and antibiotics. He improved wand was transferred to the floor after 2 days in the ICU. He was stable on the floor and was able to maintain his sats on 2.5 L of oxygen which is lower than what he 's on at home. He was discharged on bid lasix and symbicort. Follow up with pulmonary Qualifiers: Chronicity: acute Qualified Code(s): J96.01 - Acute respiratory failure with hypoxia; J96.02 - Acute respiratory failure with hypercapnia (2) CHF (congestive heart failure) Priority: Primary Status: Acute Qualifiers: Heart failure type: diastolic Qualified Code(s): I50.30 - Unspecified diastolic (congestive) heart failure Hospital course: Mr. Graham is a 57 year old male - Time Spent with Patient Total time spent providing and/or coordinating discharge services: - Discharge Medications Prescriptions: Budesonide/Formoterol 160/4.5 [Symbicort 160/4.5] 1 puff IH BIDR 30 Days #60 hfa.aer.ad Furosemide [Lasix] 40 mg PO BID 30 Days #60 tablet levoFLOXacin [Levaquin] 750 mg PO DAILY #3 tablet Home Medications: Albuterol Neb [Proventil Neb] 2.5 mg IH DAILY 03/15/17 [History] Albuterol Sulfate [Albuterol Inhaler] 2 puff IH Q4HR PRN 03/15/17 [History] Aspirin Enteric Coated [Aspirin EC] 325 mg PO DAILY tablet. 03/15/17 [Rx] Aspirin [Ecotrin] 325 mg PO DAILY 03/15/17 [History] Clopidogrel [Plavix] 75 mg PO DAILY 03/15/17 [History] Ergocalciferol (VITAMIN D2) [Vitamin D2] 50,000 unit PO QWEEK MDD 03/15 [History] Esomeprazole Magnesium [Nexium 24Hr] 20 mg PO DAILY 03/15/17 [History] Fenofibrate Nanocrystallized [Tricor] 145 mg PO DAILY 03/15/17 [History] GuaiFENesin ER [Mucinex] 1,200 mg PO BID tbbp.12hr 03/15/17 [Rx] Insulin ASPART [NovoLOG] 60 unit SQ TIDWM 03/15/17 [History] Insulin Glargine [Lantus] 100 unit SQ Q12H 03/15/17 [History] Isosorbide MONOnitrate (24 HR) [Imdur] 60 mg PO DAILY #30 tab.er.24h 03/15/17 [ Rx] Metformin HCl [Glucophage] 1,000 mg PO BID 03/15/17 [History] Metoprolol [Lopressor] 25 mg PO BID #60 tablet 03/15/17 [Rx] Multivit-Min/FA/Lycopen/Lutein [Centrum Silver Tablet] 1 tab PO DAILY 03/15/17 [ History] Nitroglycerin [Nitrostat] 0.4 mg SL 1-3XD PRN 03/15/17 [History] [place]-3 Fatty Acids [Fish Oil] 1,000 mg PO DAILY 03/15/17 [History] ARIPiprazole [Abilify] 10 mg PO DAILY 09/03/18 [History] Benzonatate [Tessalon] 200 mg PO DAILY 09/03/18 [History] Citalopram Hydrobromide [Citalopram HBr] 40 mg PO DAILY 09/03/18 [History] Gabapentin [Neurontin] 400 mg PO TID 09/03/18 [History] Lisinopril [Zestril] 20 mg PO DAILY 09/03/18 [History] Morphine Sulfate [Arymo ER] 15 mg PO BID 09/03/18 [History] OxyCODONE Immed Rel [Roxicodone 30 MG] 15 mg PO QID 09/03/18 [History] Budesonide/Formoterol 160/4.5 [Symbicort 160/4.5] 1 puff IH BIDR 30 Days #60 hfa.aer.ad 09/06/18 [Rx] Furosemide [Lasix] 40 mg PO BID 30 Days #60 tablet 09/06/18 [Rx] levoFLOXacin [Levaquin] 750 mg PO DAILY #3 tablet 09/06/18 [Rx] Allergies/Adverse Reactions: 3 Allergy/AdvReac Type Severity Reaction Status Date / Time No Known Allergies Allergy Verified 09/03/18 17:51 Date of admission: 09/04/18 08:52 Primary care physician: Elma Giordano Consults: 09/03/18 08:28 Consult to Respiratory Therapy [CONS] Stat Reason for Consult: Respiratory failure, patient on BIPAP Call Completed: No 09/03/18 08:34 Consult to Pulmonology [CONS] Stat Consulting Provider: [facility] Reason for Consult: Respiratory failure in ICU Time Notified: 08:35 Call Completed: No 09/03/18 10:55 Consult to Nutrition [CONS] Routine Comment: Consulting Provider: NUTRITION Reason for Dietary Consult: MST Score 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 - Constitutional Vitals: Temp Pulse Resp BP Pulse Ox 99.5 F 84 19 160/81 93 09/06/18 11:55 09/06/18 11:55 09/06/18 11:55 09/06/18 11:55 09/06/18 11:55 Exam: General: Pt appears to be fatigued but in no acute distress Head: Atraumatic. Normocephalic. Sinuses nontender to percussion CV: RRR. No murmurs rubs or gallops Lungs: mildly decreased breath sounds Neuro: Strength 5/5 throughout. No sensory deficits. Abdomen: Bowel sounds 4/4 quadrants. No tenderness to palpation Skin: Dry and intact - Patient Status Disposition: Home, Self-Care Condition: Good - Discharge Instructions Instructions: Heart Failure (DC) Follow Up With: [facility] [Provider Group] (Please call and schedule a hospital follow up for 4-6weeks out) Elma Giordano [Primary Care Provider] - (Office is to call you with an apppointment date and time. If you do not hear from them please call and schedule a 5-7 day hospital follow up)
--- NOTE | 2018-09-06 13:32 | Physician Discharge Referral ---
Home Health/Hosp Referral Info Transfer to: Home Health - Diagnosis (1) Respiratory failure with hypoxia and hypercapnia Priority: Primary Status: Acute (2) CHF (congestive heart failure) Priority: Primary Status: Acute - Respiratory Orders Smoking Cessation: Smoking cessation has been advised. For more information, call the [place] Tobacco Quit Line at 8-390-XTJD-NOW. - Diet/Nutrition Diet/Nutrition Orders: Cardiac - Activity Activity Orders: Ambulate - Services Needed Following services are medically necessary services: Nursing, Home Health Aide, Physical Therapy - Transfer Medications Prescriptions: Budesonide/Formoterol 160/4.5 [Symbicort 160/4.5] 1 puff IH BIDR 30 Days #60 hfa.aer.ad Furosemide [Lasix] 40 mg PO BID 30 Days #60 tablet levoFLOXacin [Levaquin] 750 mg PO DAILY #3 tablet Home Medications: Albuterol Neb [Proventil Neb] 2.5 mg IH DAILY 03/15/17 [History] Albuterol Sulfate [Albuterol Inhaler] 2 puff IH Q4HR PRN 03/15/17 [History] Aspirin Enteric Coated [Aspirin EC] 325 mg PO DAILY tablet. 03/15/17 [Rx] Aspirin [Ecotrin] 325 mg PO DAILY 03/15/17 [History] Clopidogrel [Plavix] 75 mg PO DAILY 03/15/17 [History] Ergocalciferol (VITAMIN D2) [Vitamin D2] 50,000 unit PO QWEEK MDD 03/15 [History] Esomeprazole Magnesium [Nexium 24Hr] 20 mg PO DAILY 03/15/17 [History] Fenofibrate Nanocrystallized [Tricor] 145 mg PO DAILY 03/15/17 [History] GuaiFENesin ER [Mucinex] 1,200 mg PO BID tbbp.12hr 03/15/17 [Rx] Insulin ASPART [NovoLOG] 60 unit SQ TIDWM 03/15/17 [History] Insulin Glargine [Lantus] 100 unit SQ Q12H 03/15/17 [History] Isosorbide MONOnitrate (24 HR) [Imdur] 60 mg PO DAILY #30 tab.er.24h 03/15/17 [ Rx] Metformin HCl [Glucophage] 1,000 mg PO BID 03/15/17 [History] Metoprolol [Lopressor] 25 mg PO BID #60 tablet 03/15/17 [Rx] Multivit-Min/FA/Lycopen/Lutein [Centrum Silver Tablet] 1 tab PO DAILY 03/15/17 [ History] Nitroglycerin [Nitrostat] 0.4 mg SL 1-3XD PRN 03/15/17 [History] [place]-3 Fatty Acids [Fish Oil] 1,000 mg PO DAILY 03/15/17 [History] ARIPiprazole [Abilify] 10 mg PO DAILY 09/03/18 [History] Benzonatate [Tessalon] 200 mg PO DAILY 09/03/18 [History] Citalopram Hydrobromide [Citalopram HBr] 40 mg PO DAILY 09/03/18 [History] Gabapentin [Neurontin] 400 mg PO TID 09/03/18 [History] Lisinopril [Zestril] 20 mg PO DAILY 09/03/18 [History] Morphine Sulfate [Arymo ER] 15 mg PO BID 09/03/18 [History] OxyCODONE Immed Rel [Roxicodone 30 MG] 15 mg PO QID 09/03/18 [History] Budesonide/Formoterol 160/4.5 [Symbicort 160/4.5] 1 puff IH BIDR 30 Days #60 hfa.aer.ad 09/06/18 [Rx] Furosemide [Lasix] 40 mg PO BID 30 Days #60 tablet 09/06/18 [Rx] levoFLOXacin [Levaquin] 750 mg PO DAILY #3 tablet 09/06/18 [Rx] Allergies/Adverse Reactions: 3 Allergy/AdvReac Type Severity Reaction Status Date / Time No Known Allergies Allergy Verified 09/03/18 17:51 Certification: Further, I certify that my clinical findings support that this patient is homebound (i.e. absences from home require considerable and taxing effort and are for medical reasons or jehovah's witness services or infrequently or short duration when for other reasons) because: Homebound Reason: Patient requires assistance of a person or device to safely leave home Attestation: My signature below is to certify that this patient is under my care and that I, or nurse practitioner, or a physician's group fitness assistant department head working with me, has a face-to -face encounter with this patient.
== END 2018-09-06 17:22 | disposition home or self-care (01) | DRG 190 ==
LOC: ICNU → SUATTDRO 09-04 08:52 → 2ANU 09-04 11:15
PROVIDERS: ADMIT Pediatrics; ATTEND Student in an Organized Health Care Education/Training Program

== ENCOUNTER 2021-07-16 03:12 | Inpatient (IN) ==
[2021-07-16] MEDS ORDERED: Naloxone 0.4 MG/ML INJ IVP PRN (05:23)
[2021-07-16] MEDS ORDERED: Ondansetron 4 MG/2 ML VIAL IVP PRN (05:23)
[2021-07-16 06:10] LABS: Basophils % 0.3 %; Eosinophils # 0.3 K/mcL (0.0-0.6); Eosinophils % 2.3 %; Hematocrit 30.8 % (37.5-50.1); Immature Granulocytes % 0.7 % (0-4); Lymphocytes # 2.3 K/mcL (0.6-4.6); Lymphocytes % 21.7 %; Mean Corpuscular HGB Conc 29.2 g/dL (31.6-35.5); Mean Corpuscular Hemoglobin 29.7 pg (28.0-33.3); Mean Corpuscular Volume 101.7 fL (83.0-100.0); Mean Platelet Volume 10.5 fL (9.4-12.4); Monocytes % 8.9 %; Neutrophils # 7.1 K/mcL (1.6-8.9); Platelet Count 211 K/mcL (140-400); Red Blood Count 3.03 M/mcL (4.19-5.50); Red Cell Distribution Width 16.9 % (11.5-14.5); Segmented Neutrophils % 66.1 %; White Blood Count 10.8 K/mcL (4.3-11.1)
[2021-07-16 06:19] LABS: INR 1.2; Prothrombin Time 13.4 Seconds (9.4-12.1)
[2021-07-16] MEDS ORDERED: Dextrose Gel 15 GM/37.5 ML TUBE PO PRN ×2 (06:24)
[2021-07-16] MEDS ORDERED: *HR* Dextrose 50 % in Water (Vial) 50 ML VIAL IVP PRN (06:24)
[2021-07-16] MEDS ORDERED: D5% in Water 1,000 ML IVC PRN (06:24)
[2021-07-16 06:31] LABS: Alanine Aminotransferase 6 Units/L (7-52); Albumin 3.1 g/dL (3.5-5.7); Albumin/Globulin Ratio 0.9 (1.1-2.2); Alkaline Phosphatase 111 Units/L (34-104); Aspartate Amino Transferase 16 Units/L (13-39); BUN/Creatinine Ratio 37 (6-26); Bilirubin,Total 0.3 mg/dL (0.3-1.0); Blood Urea Nitrogen 40 mg/dL (8-23); Calcium 8.6 mg/dL (8.6-10.3); Carbon Dioxide 19 mEq/L (23-29); Chloride 114 mEq/L (98-107); Globulin 3.4 g/dL (2.4-3.5); Glucose 101 mg/dL (70-105); Osmolality,Calculated 296 (280-300); Potassium 4.8 mEq/L (3.5-5.1); Sodium 138 mEq/L (136-145); Total Protein 6.5 g/dL (6.4-8.9); eGFR For African Americans > 60 (> 60); eGFR For Non-African Americans > 60 (> 60)
[2021-07-16] MEDS ORDERED: SODIUM ZIRCONIUM CYCLOSILICATE 5 GM POWD.PACK PO ONE (06:54)
[2021-07-16 07:04] LABS: VBG HCO3 21 mEq/L (21-27); VBG PCO2 48 mmHg (41-51); VBG PH 7.25 pH Units (7.32-7.42); VBG PO2 75 mmHg (25-50)
[2021-07-16] MEDS: Budesonide/Formoterol 160/4.5 1 PUFF INH IH SCH ×2 (07:39→20:33)
[2021-07-16] MEDS: Albuterol 2.5 MG/3 ML NEBULIZER IH SCH (07:39)
[2021-07-16] MEDS: ARIPiprazole 10 MG TABLET PO SCH (08:17)
[2021-07-16] MEDS: Gabapentin 400 MG CAPSULE PO SCH ×4 (08:18→20:24)
[2021-07-16] MEDS: Insulin LISPRO 300 UNITS/3 ML VIAL SUBQ SCH ×2 (10:29→16:56)
[2021-07-16 11:49] LABS: Estimated Average Glucose 114 mg/dl; Hemoglobin A1C 5.6 %
[2021-07-16 15:05] LABS: C-Reactive Protein 82 mg/L (Less than 10)
[2021-07-16] MEDS ORDERED: Nicotine 2 MG GUM BC PRN (17:54)
[2021-07-16] MEDS: Nicotine 21 MG PATCH.TD24 TD SCH (18:06)
[2021-07-16] MEDS: Acetaminophen 325 MG TABLET PO PRN (19:55)
[2021-07-16] MEDS: Melatonin 3 MG TABLET PO PRN (19:55)
[2021-07-16] MEDS: Carbidopa/Levodopa 25/100 TABLET PO SCH ×2 (19:55→19:56)
[2021-07-16] MEDS ORDERED: Insulin DETEMIR 100 UNIT/ML X5UNITS SUBQ SCH (21:00)
[2021-07-17 01:15] LABS: Hematocrit 31.7 % (37.5-50.1); Hemoglobin 9.3 g/dL (12.9-16.9); Mean Corpuscular HGB Conc 29.3 g/dL (31.6-35.5); Mean Corpuscular Hemoglobin 29.9 pg (28.0-33.3); Mean Corpuscular Volume 101.9 fL (83.0-100.0); Red Blood Count 3.11 M/mcL (4.19-5.50); Red Cell Distribution Width 16.8 % (11.5-14.5)
[2021-07-17 01:17] LABS: Basophils % 0.2 %; Eosinophils # 0.3 K/mcL (0.0-0.6); Eosinophils % 3.2 %; Immature Granulocytes % 0.5 % (0-4); Immature Platelets 5.5 % (1.1-6.1); Lymphocytes # 2.2 K/mcL (0.6-4.6); Lymphocytes % 23.3 %; Mean Platelet Volume 11.3 fL (9.4-12.4); Monocytes # 0.7 K/mcL (0.0-1.3); Monocytes % 7.7 %; Neutrophils # 6.1 K/mcL (1.6-8.9); Platelet Count 183 K/mcL (140-400); Segmented Neutrophils % 65.1 %; White Blood Count 9.3 K/mcL (4.3-11.1)
[2021-07-17] MEDS: Insulin LISPRO 300 UNITS/3 ML VIAL SUBQ SCH ×4 (01:30→17:43)
[2021-07-17 01:36] LABS: BUN/Creatinine Ratio 38 (6-26); Blood Urea Nitrogen 31 mg/dL (8-23); Calcium 8.7 mg/dL (8.6-10.3); Carbon Dioxide 17 mEq/L (23-29); Chloride 115 mEq/L (98-107); Glucose 79 mg/dL (70-105); Iron 40 mcg/dL (65-175); Magnesium 1.9 mg/dL (1.6-2.6); Osmolality,Calculated 291 (280-300); Phosphorous 3.1 mg/dL (2.7-4.5); Sodium 138 mEq/L (136-145); eGFR For African Americans > 60 (> 60); eGFR For Non-African Americans > 60 (> 60)
[2021-07-17 01:52] LABS: Ferritin 151 ng/mL (20-250)
[2021-07-17 02:02] LABS: Folate 16.2 ng/mL (3.0-16.0)
[2021-07-17 02:55] LABS: % Iron Saturation 16 % (20-55); Transferrin 175 mg/dL (203-362)
[2021-07-17] MEDS: Acetaminophen 325 MG TABLET PO PRN (06:11)
[2021-07-17] MEDS: Isosorbide MONOnitrate (24 HR) 60 MG TAB.ER.24H PO SCH (07:44)
[2021-07-17] MEDS: Gabapentin 400 MG CAPSULE PO SCH ×6 (07:46→21:52)
[2021-07-17] MEDS: ARIPiprazole 10 MG TABLET PO SCH (07:46)
[2021-07-17] MEDS: Nicotine 21 MG PATCH.TD24 TD SCH (07:47)
[2021-07-17] MEDS ORDERED: Iron Sucrose Complex 400 MG in 0.9 % Sodium Chloride 250 ML IVPB ONE (08:20)
[2021-07-17 10:05] LABS: VBG HCO3 22 mEq/L (21-27); VBG PCO2 43 mmHg (41-51); VBG PH 7.31 pH Units (7.32-7.42); VBG PO2 99 mmHg (25-50)
[2021-07-17] MEDS: Budesonide/Formoterol 160/4.5 1 PUFF INH IH SCH ×2 (10:51→22:09)
[2021-07-17] MEDS: Albuterol 2.5 MG/3 ML NEBULIZER IH SCH (10:52)
[2021-07-17] MEDS: Multivit/Ca/Min/Fe/FA 1 TAB TABLET PO SCH (12:39)
[2021-07-17] MEDS: Carbidopa/Levodopa 25/100 TABLET PO SCH ×3 (13:25→21:06)
[2021-07-17] MEDS ORDERED: Insulin DETEMIR 100 UNIT/ML X5UNITS SUBQ SCH (21:00)
[2021-07-17] MEDS: *HR* OxyCODONE/APAP 10/325 TABLET PO PRN (21:06)
[2021-07-17] MEDS: Melatonin 3 MG TABLET PO PRN (21:06)
[2021-07-18 01:04] LABS: Basophils % 0.3 %; Eosinophils # 0.5 K/mcL (0.0-0.6); Eosinophils % 4.2 %; Hematocrit 31.2 % (37.5-50.1); Hemoglobin 9.6 g/dL (12.9-16.9); Immature Granulocytes % 0.8 % (0-4); Lymphocytes # 2.6 K/mcL (0.6-4.6); Lymphocytes % 22.1 %; Mean Corpuscular HGB Conc 30.8 g/dL (31.6-35.5); Mean Corpuscular Hemoglobin 30.9 pg (28.0-33.3); Mean Corpuscular Volume 100.3 fL (83.0-100.0); Monocytes # 0.9 K/mcL (0.0-1.3); Monocytes % 7.6 %; Neutrophils # 7.6 K/mcL (1.6-8.9); Platelet Count 215 K/mcL (140-400); Red Blood Count 3.11 M/mcL (4.19-5.50); Red Cell Distribution Width 16.5 % (11.5-14.5); White Blood Count 11.7 K/mcL (4.3-11.1)
[2021-07-18 01:31] LABS: BUN/Creatinine Ratio 26 (6-26); Blood Urea Nitrogen 25 mg/dL (8-23); Calcium 8.8 mg/dL (8.6-10.3); Carbon Dioxide 18 mEq/L (23-29); Chloride 112 mEq/L (98-107); Glucose 103 mg/dL (70-105); Magnesium 1.9 mg/dL (1.6-2.6); Osmolality,Calculated 283 (280-300); Phosphorous 3.5 mg/dL (2.7-4.5); Potassium 5.4 mEq/L (3.5-5.1); Sodium 134 mEq/L (136-145); eGFR For African Americans > 60 (> 60); eGFR For Non-African Americans > 60 (> 60)
[2021-07-18] MEDS ORDERED: *HR* LORazepam 2 MG/ML VIAL IVP ONE (03:53)
[2021-07-18] MEDS: Multivit/Ca/Min/Fe/FA 1 TAB TABLET PO SCH (05:31)
[2021-07-18] MEDS: *HR* OxyCODONE/APAP 10/325 TABLET PO PRN ×3 (05:37→19:45)
[2021-07-18] MEDS ORDERED: *HR* Enoxaparin 40 MG/0.4 ML SYRINGE SQ SCH (06:00)
[2021-07-18] MEDS: Albuterol 2.5 MG/3 ML NEBULIZER IH SCH (07:46)
[2021-07-18] MEDS: Budesonide/Formoterol 160/4.5 1 PUFF INH IH SCH ×2 (07:47→19:52)
[2021-07-18] MEDS: Insulin LISPRO 300 UNITS/3 ML VIAL SUBQ SCH ×3 (07:51→16:43)
[2021-07-18] MEDS ORDERED: Aspirin Enteric Coated 325 MG Tablet PO SCH (09:00)
[2021-07-18] MEDS ORDERED: SODIUM ZIRCONIUM CYCLOSILICATE 5 GM POWD.PACK PO SCH (09:00)
[2021-07-18] MEDS: Isosorbide MONOnitrate (24 HR) 60 MG TAB.ER.24H PO SCH (09:04)
[2021-07-18] MEDS: Gabapentin 400 MG CAPSULE PO SCH ×6 (09:04→19:45)
[2021-07-18] MEDS: Nicotine 21 MG PATCH.TD24 TD SCH (09:04)
[2021-07-18] MEDS: ARIPiprazole 10 MG TABLET PO SCH (09:05)
[2021-07-18] MEDS: Carbidopa/Levodopa 25/100 TABLET PO SCH ×4 (09:06→19:45)
[2021-07-18] MEDS ORDERED: Insulin Human Regular 10 UNIT in 0.9 % Sodium Chloride 10 ML IV ONE (15:55)
[2021-07-18] MEDS ORDERED: *HR* Dextrose 50 % in Water (Vial) 50 ML VIAL IVP ONE (15:55)
[2021-07-18] MEDS ORDERED: Furosemide 20 MG/2 ML VIAL IVP ONE (15:57)
[2021-07-18 16:11] LABS: Adenovirus Not Detected (Not Detect); Coronavirus 229E Not Detected (Not Detect); Coronavirus HKU1 Not Detected (Not Detect); Coronavirus NL63 Not Detected (Not Detect)
[2021-07-18 16:12] LABS: Bordetella Pertussis Not Detected (Not Detect); Chlamydophila pneumoniae Not Detected (Not Detect); Coronavirus OC43 Not Detected (Not Detect); Human Metapneumovirus Not Detected (Not Detect); Human Rhinovirus/Enterovirus Not Detected (Not Detect); Influenza A Subtype 2009 H1 Not Detected (Not Detect); Influenza B Not Detected (Not Detect); Mycoplasma pneumoniae Not Detected (Not Detect); Parainfluenza Virus 1 Not Detected (Not Detect); Parainfluenza Virus 2 Not Detected (Not Detect); Parainfluenza Virus 3 Not Detected (Not Detect); Parainfluenza Virus 4 Not Detected (Not Detect); Respiratory Syncytial Virus Not Detected (Not Detect); SARS-CoV-2 Not Detected (Not Detect)
[2021-07-18 20:35] VITALS: BP 143/75; PULSE 68; TEMP 97.9; O2SAT 94
[2021-07-22] MEDS ORDERED: Ergocalciferol (VIT D2) 50,000 UNIT (1.25MG) CAP PO SCH (18:00)
== END 2021-07-18 21:25 | disposition short-term general hospital (02) | DRG 638 ==
LOC: 3NENU → SUATTDRO 04:29
PROVIDERS: ADMIT Family Medicine; ATTEND Internal Medicine